=== PATIENT | male | born 1970 | race Two or more races ===

== ENCOUNTER 2016-04-18 14:26 | Emergency (ER) | payer MEDICARE, MEDICAID ==
[2016-04-18] MEDS ORDERED: NS 0.9% 1000 ML* 1,000 ML IV ONE (15:09)
[2016-04-18] MEDS ORDERED: Ondansetron INJ* 2 MG/ML VIAL IV ONE (15:11)
--- NOTE | 2016-04-18 15:37 | RAD ---
INDICATION: Seizure COMPARISON: May 08, 2015 TECHNIQUE: An AP portable view obtained at 1530 hours is submitted. FINDINGS: Bones/Soft Tissues: There are no acute bony findings. Cardiomediastinal: The cardiomediastinal silhouette is normal. Lungs: There are no infiltrates. Pleura: There are no pleural effusions. Other: None IMPRESSION: NO ACTIVE DISEASE.
[2016-04-18 15:52] LABS: Hematocrit 46 % (42-52); Hemoglobin 15.7 g/dl (14.0-18.0); Mean Corpuscular HGB Conc 34 g/dl (31-36); Mean Corpuscular Hemoglobin 30 pg (27-31); Mean Corpuscular Volume 88 fL (80-94); Mean Platelet Volume 9 um3 (7.4-10.4); Red Blood Count 5.19 10^6/ul (4.0-5.4); Red Cell Distribution Width 12 % (10.5-15)
[2016-04-18 16:01] LABS: ALT 41 U/L (7-52); AST 19 U/L (13-39); Albumin 4.2 g/dL (3.2-5.2); Alkaline Phosphatase 40 U/L (34-104); Anion Gap 5 mmol/L (2-11); BUN/Creatinine Ratio 18.1 (8-20); Blood Urea Nitrogen 19 mg/dL (6-24); CO2 Carbon Dioxide 25 mmol/L (22-32); Calcium 9.3 mg/dL (8.6-10.3); Chloride 105 mmol/L (101-111); EGFR African American 97.8 (>60); Globulin 2.6 g/dL (2-4); Glucose 97 mg/dL (70-100); Magnesium 2.1 mg/dL (1.9-2.7); Potassium 3.9 mmol/L (3.5-5.0); Sodium 135 mmol/L (133-145); Total Protein 6.8 g/dL (6.4-8.9)
[2016-04-18 16:27] LABS: Alcohol < 10 mg/dL (<10)
[2016-04-18] MEDS ORDERED: Divalproex ER TAB(*) 500 MG PO ONE (16:37)
[2016-04-18 16:47] VITALS: BP 128/75
--- NOTE | 2016-04-18 16:57 | ED ---
Shan Guan Billy, scribed for Stewart Dong MD on 04/18/16 at 1507 . Neurological HPI - HPI Summary HPI Summary: Patient is a 45 year-old male with history of seizures coming to [facility] presenting with an episode today at around 1300. His states that he complained of a headache this morning, and when they were watching their daughter's basketball game, she noticed that he had his head down. She suspected that he was about to have a seizure, so she brought him down the bleachers and out of the gym, where she let him down to the ground. He then proceeded to have one seizure lasting approximately 15 minutes. Symptoms resolved spontaneously. Patient reports nausea and fatigue at this time. Denies any tongue-biting, incontinence, HINES, CP, or SOB at this time. Denies head injury. His states that his post-ictal state seems longer than usual. He sees Dr. Duffy for neurology. He takes Zonisamide and Depakote for his seizures and he has not missed any doses recently. - History of Current Complaint Chief Complaint: EDSeizure Stated Complaint: SEIZURE Time Seen by Provider: 04/18/16 15:01 Hx Obtained From: Patient, Family/Core Analysis Operator Timing: Sudden Onset Seizure Severity: Moderate Number of Seizures: 1 - 15 minutes Pain Intensity: 3 Pain Scale Used: 0-10 Numeric Aggravating: Nothing Alleviating: Nothing Associated Signs and Symptoms: Positive: Headache - resolved, Nausea/Vomiting - nausea without vomiting. Negative: Incontinent Bladder/Bowel, Chest Pain, Shortness of Breath - Allergy/Home Medications Allergies/Adverse Reactions: Allergies Allergy/AdvReac Type Severity Reaction Status Date / Time No Known Allergies Allergy Verified 05/08/15 18:45 PMH/Surg Hx/FS Hx/Imm Hx Endocrine/Hematology History: Denies: Hx Diabetes Cardiovascular History: Denies: Hx Hypertension, Hx Pacemaker/ICD History: Denies: Hx Renal Disease Sensory History: Denies: Hx Hearing Aid Neurological History: Reports: Hx Seizures Psychiatric History: Denies: Hx Panic Disorder - Surgical History Surgery Procedure, Year, and Place: EYES- MUSCLE CORRECTION Infectious Disease History: No Infectious Disease History: Denies: Hx Clostridium Difficile, Hx Hepatitis, Hx Human Immunodeficiency Virus (HIV), Hx of Known/Suspected MRSA, Hx Shingles, Hx Tuberculosis, Hx Known/ Suspected VRE, Hx Known/Suspected VRSA, History Other Infectious Disease, Traveled Outside the [place] in Last 30 Days - Family History Known Family History: Positive: Hypertension - Social History Alcohol Use: None Alcohol Amount: 1-2 beers Substance Use Type: Reports: None Hx Tobacco Use: No Smoking Status (MU): Former Smoker Length of Time of Smoking/Using Tobacco: 3-4 years Have You Smoked in the Last Year: No Review of Systems Negative: Chest Pain Negative: Shortness Of Breath Positive: Nausea Negative: incontinence Neurological: Other - seizure Positive: Headache - resolved All Other Systems Reviewed And Are Negative: Yes Physical Exam - Summary Physical Exam Summary: VITAL SIGNS: Reviewed. GENERAL: Patient is a well developed and nourished male who is lying comfortable in the stretcher. Patient is not in any acute respiratory distress. HEAD AND FACE: No signs of trauma. No ecchymosis, hematomas or skull depressions. No sinus tenderness. EYES: PERRLA, EOMI x 2, No injected conjunctiva, no nystagmus. No photophobia. EARS: Hearing grossly intact. Ear canals and tympanic membranes are within normal limits. MOUTH: Oropharynx within normal limits. NECK: Supple, trachea is midline, no adenopathy, no JVD, no carotid bruit, no c- spine tenderness, neck with full ROM. No meningeal signs, no Kernig's or brudzinskis signs. CHEST: Symmetric, no tenderness at palpation LUNGS: Clear to auscultation bilaterally. No wheezing or crackles. CVS: Regular rate and rhythm, S1 and S2 present, no murmurs or gallops appreciated. ABDOMEN: Soft, non-tender. No signs of distention. No rebound no guarding, and no masses palpated. Bowel sounds are normal. EXTREMITIES: FROM in all major joints, no edema, no cyanosis or clubbing. NEURO: Alert and oriented x 3. No acute neurological deficits. Speech is normal and follows commands. SKIN: Dry and warm Triage Information Reviewed: Yes Vital Signs On Initial Exam: Initial Vitals Temp Pulse Resp BP Pulse Ox 99.1 F 74 18 139/77 98 04/18/16 14:41 04/18/16 14:41 04/18/16 14:41 04/18/16 14:41 04/18/16 14:41 Vital Signs Reviewed: Yes Diagnostics - Vital Signs Vital Signs Temp Pulse Resp BP Pulse Ox 04/18/16 14:41 99.1 F 74 18 139/77 98 - Laboratory Lab Results: Lab Results 04/18/16 04/18/16 04/18/16 Range/Units 15:37 15:37 15:37 WBC 8.0 (3.5-10.8) 10^3/ul RBC 5.19 (4.0-5.4) 10^6/ul Hgb 15.7 (14.0-18.0) g/dl Hct 46 (42-52) % MCV 88 (80-94) fL MCH 30 (27-31) pg MCHC 34 (31-36) g/dl RDW 12 (10.5-15) % Plt Count 113 L (150-450) 10^3/ul MPV 9 (7.4-10.4) um3 Neut % (Auto) 66.4 (38-83) % Lymph % (Auto) 26.4 (25-47) % [place] % (Auto) 5.4 (1-9) % Eos % (Auto) 1.4 (0-6) % Baso % (Auto) 0.4 (0-2) % Absolute Neuts (auto) 5.3 (1.5-7.7) 10^3/ul Absolute Lymphs (auto) 2.1 (1.0-4.8) 10^3/ul Absolute Monos (auto) 0.4 (0-0.8) 10^3/ul Absolute Eos (auto) 0.1 (0-0.6) 10^3/ul Absolute Basos (auto) 0 (0-0.2) 10^3/ul Absolute Nucleated RBC 0.01 10^3/ul Nucleated RBC % 0.1 INR (Anticoag Therapy) 0.95 (0.89-1.11) Sodium 135 (133-145) mmol/L Potassium 3.9 (3.5-5.0) mmol/L Chloride 105 (101-111) mmol/L Carbon Dioxide 25 (22-32) mmol/L Anion Gap 5 (2-11) mmol/L BUN 19 (6-24) mg/dL Creatinine 1.05 (0.67-1.17) mg/dL Est GFR ( Amer) 97.8 (>60) Est GFR (Non-Af Amer) 76.0 (>60) BUN/Creatinine Ratio 18.1 (8-20) Glucose 97 (70-100) mg/dL Lactic Acid (0.5-2.0) mmol/L Calcium 9.3 (8.6-10.3) mg/dL Magnesium 2.1 (1.9-2.7) mg/dL Total Bilirubin 0.50 (0.2-1.0) mg/dL AST 19 (13-39) U/L ALT 41 (7-52) U/L Alkaline Phosphatase 40 (34-104) U/L Total Protein 6.8 (6.4-8.9) g/dL Albumin 4.2 (3.2-5.2) g/dL Globulin 2.6 (2-4) g/dL Albumin/Globulin Ratio 1.6 (1-3) Valproic Acid 14.0 L (50-100) mcg/mL Serum Alcohol < 10 (<10) mg/dL 04/18/16 Range/Units 15:37 WBC (3.5-10.8) 10^3/ul RBC (4.0-5.4) 10^6/ul Hgb (14.0-18.0) g/dl Hct (42-52) % MCV (80-94) fL MCH (27-31) pg MCHC (31-36) g/dl RDW (10.5-15) % Plt Count (150-450) 10^3/ul MPV (7.4-10.4) um3 Neut % (Auto) (38-83) % Lymph % (Auto) (25-47) % [place] % (Auto) (1-9) % Eos % (Auto) (0-6) % Baso % (Auto) (0-2) % Absolute Neuts (auto) (1.5-7.7) 10^3/ul Absolute Lymphs (auto) (1.0-4.8) 10^3/ul Absolute Monos (auto) (0-0.8) 10^3/ul Absolute Eos (auto) (0-0.6) 10^3/ul Absolute Basos (auto) (0-0.2) 10^3/ul Absolute Nucleated RBC 10^3/ul Nucleated RBC % INR (Anticoag Therapy) (0.89-1.11) Sodium (133-145) mmol/L Potassium (3.5-5.0) mmol/L Chloride (101-111) mmol/L Carbon Dioxide (22-32) mmol/L Anion Gap (2-11) mmol/L BUN (6-24) mg/dL Creatinine (0.67-1.17) mg/dL Est GFR ( Amer) (>60) Est GFR (Non-Af Amer) (>60) BUN/Creatinine Ratio (8-20) Glucose (70-100) mg/dL Lactic Acid 1.5 (0.5-2.0) mmol/L Calcium (8.6-10.3) mg/dL Magnesium (1.9-2.7) mg/dL Total Bilirubin (0.2-1.0) mg/dL AST (13-39) U/L ALT (7-52) U/L Alkaline Phosphatase (34-104) U/L Total Protein (6.4-8.9) g/dL Albumin (3.2-5.2) g/dL Globulin (2-4) g/dL Albumin/Globulin Ratio (1-3) Valproic Acid (50-100) mcg/mL Serum Alcohol (<10) mg/dL Result Diagrams: 04/18/16 15:37 04/18/16 15:37 Lab Statement: Any lab studies that have been ordered have been reviewed, and results considered in the medical decision making process. - Radiology CXR Xray Interpretation: No Acute Changes Radiology Interpretation Completed By: Radiologist - EKG 1603 EKG Interpretation: NSR 65 bpm, no ST elevation Re-Evaluation - Re-Evaluation First Eval Re-Evaluation Time: 16:37 Change: Improved Course/Dx - Course Assessment/Plan: Patient is a 45 year-old male with history of seizures coming to [facility] presenting with an episode today at around 1300. His states that he complained of a headache this morning, and when they were watching their daughter's basketball game, she noticed that he had his head down. She suspected that he was about to have a seizure, so she brought him down the bleachers and out of the gym, where she let him down to the ground. He then proceeded to have one seizure lasting approximately 15 minutes. Symptoms resolved spontaneously. Patient reports nausea and fatigue at this time. Denies any tongue-biting, incontinence, HINES, CP, or SOB at this time. Denies head injury. His states that his post-ictal state seems longer than usual. He sees Dr. Duffy for neurology. He takes Zonisamide and Depakote for his seizures and he has not missed any doses recently. Bloodwork WNL. Valproic acid level is 14. This level is very low, so it seems as if he missed a few doses of his medication, therefore he had a seizure episode today. The CXR is normal. In the Ed course, he was given IV fluids and a loading dose of valproic acid. I discussed the case with Dr. Farley (neurology) and she recommends for the patient to be discharged home to follow up with neurologist and to be compliant with his medications. He is hemodynamically stable, A&Ox3. - Differential Dx Differential Diagnoses Neuro: Positive: Medication Reaction, Postical, Seizure Disorder - Diagnoses Provider Diagnoses: Seizure - Physician Notifications Discussed Care of Patient With: Dr. Farley (neurology) @ 1634: recommends an additional 500mg of Depakote, and discharge. Discharge - Discharge Plan Condition: Stable Disposition: HOME Patient Education Materials: Recurrent Seizures in Adults (ED) Referrals: Yaron Latham MD [Primary Care Provider] - Radha Farley MD [Medical Doctor] - The documentation as recorded by the Shan bearden Billy accurately reflects the service I personally performed and the decisions made by me, Stewart Dong MD.
== END 2016-04-18 16:51 | disposition home or self-care (01) ==
LOC: ED 14:26
DX: G40.909 Epilepsy, unspecified, not intractable, without status epilepticus (principal); Z87.891 Personal history of nicotine dependence
CPT/HCPCS: 36415; 71010; 80053; 80164; 80320; 83605; 83735; 85025; 85610; 93005; 99283; A9270-GY; G0480; J2405

== ENCOUNTER 2016-05-15 14:00 | Inpatient (IN) | payer MEDICARE, MEDICAID ==
[2016-05-15] MEDS ORDERED: diPHENhydraMINE PO* 25 MG PO PRN (19:45)
[2016-05-15] MEDS ORDERED: LORazepam INJ* 2 MG/ML 1 ML VIAL IV PRN (19:45)
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
[2016-05-15] MEDS: Divalproex DR TAB(*) 125 MG PO SCH (21:29)
[2016-05-16] MEDS: traZODone TAB* 50 MG TAB PO PRN ×2 (00:52→23:57)
[2016-05-16] MEDS: ICOSAPENT ETHYL PO SCH ×2 (08:45→22:30)
[2016-05-16] MEDS: Divalproex DR TAB(*) 125 MG PO SCH (08:45)
--- NOTE | 2016-05-16 12:06 | PN ---
Epilepsy Service Progress Note - Subjective DOS: 05/16/16 Pt was a little nauseated last night. At some crackers, had kvng rafia. Thinks it's because he took his meds with less food in his stomach than normal. Had some trouble falling asleep but otherwise slept ok. No events since last night at 6pm. - Medications Active Medications: Diphenhydramine HCl (Benadryl Po*) 25 mg PO Q6H PRN PRN Reason: ITCHING Divalproex Sodium (Depakote Dr Tab(*)) 375 mg PO BID [facility] Last Admin: 05/16/16 08:45 Dose: 375 mg Ibuprofen (Motrin Tab*) 400 mg PO Q6H PRN PRN Reason: PAIN Lorazepam (Ativan Inj*) 1 mg IV Q8H PRN PRN Reason: Generalized Tonic Clonic Seizu Pto Icosapent Ethyl ([Vascepa]) 2 tab PO BID [facility] Last Admin: 05/16/16 08:45 Dose: 2 tab Trazodone HCl (Desyrel Tab*) 150 mg PO BEDTIME PRN PRN Reason: ANXIETY/INSOMNIA Last Admin: 05/16/16 00:52 Dose: 150 mg EMU Diagnostics - Diagnostic Most Recent Vital Signs: Vital Signs: Temp Pulse Resp BP Pulse Ox 97.4 F 85 20 118/71 96 05/16/16 08:52 05/16/16 08:52 05/16/16 09:51 05/16/16 08:52 05/16/16 01:18 Lab Results: Laboratory Tests 05/15/16 05/16/16 18:05 01:34 POC Glucose (mg/dL) 93 84 Interim video-EEG long-term monitoring report: #01 05/15: Normal background, PDR 9. Normal sleep background. Patient had an event of feeling "out of body", then hot, associated with delayed responses and inability to remember a recall phrase at 6pm. This was not associated with any change in the background EEG. No epileptiform discharges. No seizures. EMU Exam - Exam Physical/Neurological Exam: Physical Exam: General: Well appearing in no acute distress. Neurological Exam: Mental Status: Awake and alert. Oriented to person, place, and time. Fluent. Comprehension intact. Affect appropriate. Cranial Nerves: Visual sanchez full to confrontation. Pupils were equal, round, and reactive constricting from 3mm to 2mm. Versions were full and without nystagmus. Facial musculature and sensation were symmetric. Hearing grossly intact to finger rub. Palate was upgoing bilaterally. Tongue was midline. Shoulder shrug was symmetric. Motor: Bulk, tone, and strength were normal throughout. Pronator drift was absent. There were no abnormal movements. Sensory: Sensation to light touch intact. Coordination: Finger to nose intact. Reflexes: 2+ throughout the upper and lower extremities with downgoing toes bilaterally. Gait: deferred EMU Progress Note Assessment/P - Assessment/Plan Assessment: 45 year old man with a history of seizures since age 13 which have changed in character somewhat over the years. He has episodes of zoning out followed by abnormal body movements which were previously characterized as "like an inch worm" by his fiance, but over the last 2 years he's described as banging his against the floor once he falls and kicking his legs. He also has new episodes of an out of body feeling followed by feeling hot. One event of out of body and feeling hot captured on 05/15. He had delayed responses to questions and was unable to remember a recall phrase. This was not associated with changes in the background EEG and was non-epileptic in nature. BG was checked during the spell and was normal. No zoning out episodes captured yet. Plan: * Continue [facility] video EEG monitoring to capture typical episodes * Seizure precautions * Decrease Depakote to 250mg BID x2 doses then will likely decrease to 250mg qhs tomorrow then stop * zonisamide stopped on 05/15 * lorazepam 1mg IV prn GTC * will consider photic induction Wednesday (05/18) if no events
--- NOTE | 2016-05-16 12:12 | EEG ---
LONGTERM VIDEO/EEG MONITORING - Monitoring Monitoring Start Date: 05/15/16 Current Monitoring Session: 05/15/16 to 05/22/16 EEG Clinical Indication: 45 year old man with a reported history of seizures since age 13. Previously, he would have a warning of an odd, metallic taste in his mouth, then would have generalized shaking. Prior to shaking beginning, he would be unable to communicate but could sometimes still hear what was going on. These events have changed over the years. He no longer has the metallic taste. His fiance describes him zoning out, then he may fall to the floor and bang his head against the floor and kick his legs. This has been happening over the past 2 years. Prior to that, she described that he appeared like an inch worm, moving across the floor after falling. These episodes can last 15 to 20 minutes. He also has newer episodes in the past 2 weeks of an "out of body" experience following by feeling hot. These last a few minutes. Introduction: INTRODUCTION: The EEG was monitored from 21 scalp electrodes. Nineteen electrodes consisted of the standard parasagittal, temporal and midline leads of the International 10 -20 system. In addition, special electrodes FT9 and FT10 were placed. EEG data were recorded on an [employer] system with simultaneous MPEG-4 digital video recording of patient behavior. EEG recording was in a monopolar montage with all electrodes referenced to FCz. Significant behavioral events were signaled by an event button, or putative electrical seizure events were detected by a computer program. All EEG data were reviewed in their entirety on a monitor with reconstruction of montages and adjustments of sensitivity and filtering. Simultaneous patient behavior was viewed on an adjacent monitor and correlated with the EEG. - Medications Active Medications: Diphenhydramine HCl (Benadryl Po*) 25 mg PO Q6H PRN PRN Reason: ITCHING Divalproex Sodium (Depakote Dr Tab(*)) 375 mg PO BID [facility] Last Admin: 05/16/16 08:45 Dose: 375 mg Ibuprofen (Motrin Tab*) 400 mg PO Q6H PRN PRN Reason: PAIN Lorazepam (Ativan Inj*) 1 mg IV Q8H PRN PRN Reason: Generalized Tonic Clonic Seizu Pto Icosapent Ethyl ([Vascepa]) 2 tab PO BID [facility] Last Admin: 05/16/16 08:45 Dose: 2 tab Trazodone HCl (Desyrel Tab*) 150 mg PO BEDTIME PRN PRN Reason: ANXIETY/INSOMNIA Last Admin: 05/16/16 00:52 Dose: 150 mg - Description Background: The waking background showed appropriate organization with clearly defined anterior-posterior voltage and frequency gradients. There was a defined posterior dominant rhythm of 9 Hertz, which was symmetrical and showed normal reactivity. Anteriorly, there was the expected pattern of lower voltage and more irregular theta and beta rhythms. The sleep background was appropriately organized with well-developed spindles and vertex waves indicative of stage 2 sleep. These sleep transients showed appropriate morphology and were bilaterally synchronous and symmetrical. Development of diffuse delta range frequencies with dropout of stage 2 architecture accompanied transition to slow wave sleep, and a lower voltage mixed frequency pattern associated with eye movements was consistent with REM sleep. Intericatal Epileptiform Activity: #01 05/15: Zonisamide discontinued. Depakote decreased to 375mg BID. No discharges. #02 05/16: Depakote 375/250mg. Background is the same as above. No discharges. #03 05/17: Depakote 250mg BID then d/c'd. Background is same as above. No discharges. #04 05/18: Background unchanged. No discharges. Photic stimulation showed a normal driving response. #05 05/19: Background unchanged. No discharges. Sleep deprived, patient slept 1.5 hours #06 05/20: Background unchanged. No discharges. Photic stimulation performed and a normal driving response was observed. #07 05/21: Zonisamide 200mg BID started in the evening of 05/21. Background unchanged. No discharges. Ictal Activity: #01 05/15: At 17:55 the patient pushed the event button and indicated he was having an out of body feeling. He had delayed responses to questions and commands intermittently and was unable to remember a recall phrase (purple cow) given to him. He complained of his face feeling like it was burning. He was able to identify his fiance in the room but had a hard time coming up with her name. This event lasted about 3 minutes. There was no EEG change with this. No seizures. #02 05/16: No ictal events. No patient events. #03 05/17: No ictal events. No patient events. #04 05/18: Photic induction was performed at the bedside and there were no EEG changes. No typical event was elicited. He did report that his right hand felt numb and that he felt very warm at the end of the procedure. He became tearful after the procedure was over. At 17:10, the patient pressed the event button. He had just woken from a nap and was initially slow to respond to questions from the nurse. He spoke quietly and so could not be heard well on video but reported some chest pain, feeling hot and shortness of breath. He was able to follow commands. He was tachycardic to the low 100s. BP was within normal range. EKG was obtained and was normal. There were no associated EEG changes. #05 05/19: No ictal events. Event button pressed at 05:27 on 05/20 due to feeling "jittery" in the setting of sleep deprivation. No EEG changes. #06 05/20: Photic induction was performed. The patient reported feeling jittery and dizzy but a typical event was not elicited. There were no abnormal EEG patterns noted during photic. No ictal events, no patient events. #07 05/21: No ictal events. No patient events. - Impression Impression: This is a normal long-term monitoring session. There was one event of an out of body sensation captured on the day of admission, which was not associated with any EEG changes. This was consistent with a psychogenic non-epileptic attack ( PNEA). In addition, other non-specific symptoms were noted by the patient, which were also not associated with any EEG changes and are further described above. Unfortunately, none of the patient's typical events of unresponsiveness and abnormal body movements were captured during this monitoring session. While the current monitoring session does not suggest a diagnosis of epilepsy, the results overall are inconclusive since a habitual episode was not captured.
[2016-05-16] MEDS: Divalproex DR TAB(*) 250 MG PO SCH (22:30)
[2016-05-17] MEDS: ICOSAPENT ETHYL PO SCH ×2 (09:35→21:09)
[2016-05-17] MEDS: Divalproex DR TAB(*) 250 MG PO SCH ×2 (09:38→21:09)
[2016-05-17] MEDS: Ibuprofen TAB* 400 MG PO PRN (10:16)
--- NOTE | 2016-05-17 12:42 | PN ---
Epilepsy Service Progress Note - Subjective Mr Malik has no complaints. No episodes overnight. Says he is not stressed here like he typically is at home because he's usually taking care of 2 kids, cleaning, cooking, etc. - Medications Active Medications: Diphenhydramine HCl (Benadryl Po*) 25 mg PO Q6H PRN PRN Reason: ITCHING Divalproex Sodium (Depakote Dr Tab(*)) 250 mg PO BID [facility] Last Admin: 05/17/16 09:38 Dose: 250 mg Ibuprofen (Motrin Tab*) 400 mg PO Q6H PRN PRN Reason: PAIN Last Admin: 05/17/16 10:16 Dose: 400 mg Lorazepam (Ativan Inj*) 1 mg IV Q8H PRN PRN Reason: Generalized Tonic Clonic Seizu Pto Icosapent Ethyl ([Vascepa]) 2 tab PO BID [facility] Last Admin: 05/17/16 09:35 Dose: 2 tab Trazodone HCl (Desyrel Tab*) 150 mg PO BEDTIME PRN PRN Reason: ANXIETY/INSOMNIA Last Admin: 05/16/16 23:57 Dose: 150 mg EMU Diagnostics - Diagnostic Most Recent Vital Signs: Vital Signs: Temp Pulse Resp BP Pulse Ox 97.4 F 76 18 126/66 96 05/17/16 08:06 05/17/16 08:06 05/17/16 10:18 05/17/16 08:06 05/17/16 08:00 Lab Results: Laboratory Tests 05/15/16 05/16/16 18:05 01:34 POC Glucose (mg/dL) 93 84 Interim video-EEG long-term monitoring report: #01 05/15: Normal background, PDR 9. Normal sleep background. Patient had an event of feeling "out of body", then hot, associated with delayed responses and inability to remember a recall phrase at 6pm. This was not associated with any change in the background EEG. No epileptiform discharges. No seizures. #02 05/16: No change in background. No discharges, no seizures. No events EMU Exam - Exam Physical/Neurological Exam: Physical Exam: General: Well appearing in no acute distress. Neurological Exam: Mental Status: Awake and alert. Oriented to person, place, and time. Fluent. Comprehension intact. Affect appropriate. Cranial Nerves: Visual sanchez full to confrontation. Pupils were equal, round, and reactive constricting from 3mm to 2mm. Versions were full and without nystagmus. Facial musculature and sensation were symmetric. Hearing grossly intact to finger rub. Palate was upgoing bilaterally. Tongue was midline. Shoulder shrug was symmetric. Motor: Bulk, tone, and strength were normal throughout. Pronator drift was absent. There were no abnormal movements. Sensory: Sensation to light touch intact. Coordination: Finger to nose intact. Reflexes: 2+ throughout the upper and lower extremities with downgoing toes bilaterally. Gait: deferred EMU Progress Note Assessment/P - Assessment/Plan Assessment: 45 year old man with a history of seizures since age 13 which have changed in character somewhat over the years. He has episodes of zoning out followed by abnormal body movements which were previously characterized as "like an inch worm" by his fiance, but over the last 2 years he's described as banging his against the floor once he falls and kicking his legs. He also has new episodes of an out of body feeling followed by feeling hot. One event of out of body and feeling hot captured on 05/15. He had delayed responses to questions and was unable to remember a recall phrase. This was not associated with changes in the background EEG and was non-epileptic in nature. BG was checked during the spell and was normal. No zoning out episodes captured yet. Plan: * Continue correction video EEG monitoring to capture typical episodes * Seizure precautions * D/c Depakote after tonight's dose of 250mg. * zonisamide stopped on 05/15 * lorazepam 1mg IV prn GTC * will consider photic induction Wednesday (05/18) if no events
[2016-05-18] MEDS: traZODone TAB* 50 MG TAB PO PRN (00:42)
[2016-05-18] MEDS: ICOSAPENT ETHYL PO SCH ×2 (09:35→21:03)
--- NOTE | 2016-05-18 12:11 | PN ---
Epilepsy Service Progress Note - Subjective DOS 05/18/16 Patient feels a little tired today. Ok with doing photic induction. No events. - Medications Active Medications: Diphenhydramine HCl (Benadryl Po*) 25 mg PO Q6H PRN PRN Reason: ITCHING Ibuprofen (Motrin Tab*) 400 mg PO Q6H PRN PRN Reason: PAIN Last Admin: 05/17/16 10:16 Dose: 400 mg Lorazepam (Ativan Inj*) 1 mg IV Q8H PRN PRN Reason: Generalized Tonic Clonic Seizu Pto Icosapent Ethyl ([Vascepa]) 2 tab PO BID [facility] Last Admin: 05/18/16 09:35 Dose: 2 tab Trazodone HCl (Desyrel Tab*) 150 mg PO BEDTIME PRN PRN Reason: ANXIETY/INSOMNIA Last Admin: 05/18/16 00:42 Dose: 150 mg EMU Diagnostics - Diagnostic Most Recent Vital Signs: Vital Signs: Temp Pulse Resp BP Pulse Ox 97.8 F 75 20 118/69 96 05/18/16 09:48 05/18/16 09:48 05/18/16 09:48 05/18/16 09:48 05/18/16 09:48 Lab Results: Laboratory Tests 05/15/16 05/16/16 18:05 01:34 POC Glucose (mg/dL) 93 84 Interim video-EEG long-term monitoring report: #01 05/15: Normal background, PDR 9. Normal sleep background. Patient had an event of feeling "out of body", then hot, associated with delayed responses and inability to remember a recall phrase at 6pm. This was not associated with any change in the background EEG. No epileptiform discharges. No seizures. #02 05/16: No change in background. No discharges, no seizures. No events #03 05/17: No change in background. No discharges, no seizures. No events. EMU Exam - Exam Physical/Neurological Exam: Physical Exam: General: Well appearing in no acute distress. Neurological Exam: Mental Status: Awake and alert. Oriented to person, place, and time. Fluent. Comprehension intact. Affect appropriate. Cranial Nerves: Visual sanchez full to confrontation. Pupils were equal, round, and reactive constricting from 3mm to 2mm. Versions were full and without nystagmus. Facial musculature and sensation were symmetric. Hearing grossly intact to finger rub. Palate was upgoing bilaterally. Tongue was midline. Shoulder shrug was symmetric. Motor: Bulk, tone, and strength were normal throughout. Pronator drift was absent. There were no abnormal movements. Sensory: Sensation to light touch intact. Coordination: Finger to nose intact. Reflexes: 2+ throughout the upper and lower extremities with downgoing toes bilaterally. Gait: deferred EMU Progress Note Assessment/P - Assessment/Plan Assessment: 45 year old man with a history of seizures since age 13 which have changed in character somewhat over the years. He has episodes of zoning out followed by abnormal body movements which were previously characterized as "like an inch worm" by his fiance, but over the last 2 years he's described as banging his against the floor once he falls and kicking his legs. He also has new episodes of an out of body feeling followed by feeling hot. One event of out of body and feeling hot captured on 05/15. He had delayed responses to questions and was unable to remember a recall phrase. This was not associated with changes in the background EEG and was non-epileptic in nature. BG was checked during the spell and was normal. No zoning out episodes captured yet. Photic induction was performed this morning and was unremarkable. No event provoked. Patient just reported feeling some numbness in his right hand but this is not typical of his events. Plan: * Continue senior living video EEG monitoring to capture typical episodes * Seizure precautions * Depakote discontinued 05/17. * zonisamide stopped on 05/15 * lorazepam 1mg IV prn GTC * temperature increased in room to 85F
[2016-05-18] MEDS ORDERED: Bismuth Subsalicylate* 524 MG/30 ML BTL PO PRN (17:22)
[2016-05-18] MEDS: Bismuth Subsalicylate* 524 MG/30 ML BTL PO PRN (20:58)
[2016-05-19] MEDS: traZODone TAB* 50 MG TAB PO PRN (00:27)
[2016-05-19] MEDS: ICOSAPENT ETHYL PO SCH ×2 (10:00→21:22)
--- NOTE | 2016-05-19 12:50 | PN ---
Epilepsy Service Progress Note - Subjective No events overnight. Pt feeling better today after experiencing chest pain and feeling unwell yesterday around 5pm. Says he now feels stupid because it ended up being diarrhea, which he attributes to snacking too much. Room continues to be heated. - Medications Active Medications: Bismuth Subsalicylate (Peptic Relief*) 524 mg PO QID PRN PRN Reason: HEARTBURN Last Admin: 05/18/16 20:58 Dose: 524 mg Diphenhydramine HCl (Benadryl Po*) 25 mg PO Q6H PRN PRN Reason: ITCHING Ibuprofen (Motrin Tab*) 400 mg PO Q6H PRN PRN Reason: PAIN Last Admin: 05/17/16 10:16 Dose: 400 mg Lorazepam (Ativan Inj*) 1 mg IV Q8H PRN PRN Reason: Generalized Tonic Clonic Seizu Pto Icosapent Ethyl ([Vascepa]) 2 tab PO BID [facility] Last Admin: 05/19/16 10:00 Dose: 2 tab Trazodone HCl (Desyrel Tab*) 150 mg PO BEDTIME PRN PRN Reason: ANXIETY/INSOMNIA Last Admin: 05/19/16 00:27 Dose: 150 mg EMU Diagnostics - Diagnostic Most Recent Vital Signs: Vital Signs: Temp Pulse Resp BP Pulse Ox 98.8 F 77 17 113/66 98 05/19/16 09:30 05/19/16 09:30 05/19/16 09:30 05/19/16 09:30 05/19/16 09:30 Lab Results: Laboratory Tests 05/15/16 05/16/16 18:05 01:34 POC Glucose (mg/dL) 93 84 Interim video-EEG long-term monitoring report: #01 05/15: Normal background, PDR 9. Normal sleep background. Patient had an event of feeling "out of body", then hot, associated with delayed responses and inability to remember a recall phrase at 6pm. This was not associated with any change in the background EEG. No epileptiform discharges. No seizures. #02 05/16: No change in background. No discharges, no seizures. No events #03 05/17: No change in background. No discharges, no seizures. No events. #04 05/18: Patient had event of chest pain, tachycardia, shortness of breath and was somewhat slow to respond. No changes in EEG associated with this. No change in background, no discharges, no seizures. EMU Exam - Exam Physical/Neurological Exam: Physical Exam: General: Well appearing in no acute distress. Neurological Exam: Mental Status: Awake and alert. Oriented to person, place, and time. Fluent. Comprehension intact. Affect appropriate. Cranial Nerves: Visual sanchez full to confrontation. Pupils were equal, round, and reactive constricting from 3mm to 2mm. Versions were full and without nystagmus. Facial musculature and sensation were symmetric. Hearing grossly intact to finger rub. Palate was upgoing bilaterally. Tongue was midline. Shoulder shrug was symmetric. Motor: Bulk, tone, and strength were normal throughout. Pronator drift was absent. There were no abnormal movements. Sensory: Sensation to light touch intact. Coordination: Finger to nose intact. Reflexes: 2+ throughout the upper and lower extremities with downgoing toes bilaterally. Gait: deferred EMU Progress Note Assessment/P - Assessment/Plan Assessment: 45 year old man with a history of seizures since age 13 which have changed in character somewhat over the years. He has episodes of zoning out followed by abnormal body movements which were previously characterized as "like an inch worm" by his fiance, but over the last 2 years he's described as banging his against the floor once he falls and kicking his legs. He also has new episodes of an out of body feeling followed by feeling hot. One event of out of body and feeling hot captured on 05/15. He had delayed responses to questions and was unable to remember a recall phrase. This was not associated with changes in the background EEG and was non-epileptic in nature. BG was checked during the spell and was normal. Episode of chest pain, SOB and tachycardia on 05/18 not associated with EEG changes. Photic induction on 05/18 negative. No zoning out episodes captured yet. Plan: * Continue skilled nursing video EEG monitoring to capture typical episodes * Seizure precautions * Depakote discontinued 05/17. * zonisamide stopped on 05/15 * lorazepam 1mg IV prn GTC * temperature decreased today as patient will be sleep deprived tonight to 3 hours. No naps today.
[2016-05-20] MEDS: ICOSAPENT ETHYL PO SCH ×2 (09:18→20:04)
--- NOTE | 2016-05-20 13:11 | PN ---
Epilepsy Service Progress Note - Subjective DOS 05/20/16 Patient was sleep deprived last night and only slept about 1.5 hours. Woke up several times feeling jittery and pushed the event button once for this. Was agreeable to photic stimulation this morning - Medications Active Medications: Bismuth Subsalicylate (Peptic Relief*) 524 mg PO QID PRN PRN Reason: HEARTBURN Last Admin: 05/18/16 20:58 Dose: 524 mg Diphenhydramine HCl (Benadryl Po*) 25 mg PO Q6H PRN PRN Reason: ITCHING Ibuprofen (Motrin Tab*) 400 mg PO Q6H PRN PRN Reason: PAIN Last Admin: 05/17/16 10:16 Dose: 400 mg Lorazepam (Ativan Inj*) 1 mg IV Q8H PRN PRN Reason: Generalized Tonic Clonic Seizu Pto Icosapent Ethyl ([Vascepa]) 2 tab PO BID [facility] Last Admin: 05/20/16 09:18 Dose: 2 tab Trazodone HCl (Desyrel Tab*) 150 mg PO BEDTIME PRN PRN Reason: ANXIETY/INSOMNIA Last Admin: 05/19/16 00:27 Dose: 150 mg EMU Diagnostics - Diagnostic Most Recent Vital Signs: Vital Signs: Temp Pulse Resp BP Pulse Ox 97.7 F 77 20 132/83 99 05/20/16 07:41 05/20/16 07:41 05/20/16 07:41 05/20/16 07:41 05/20/16 07:41 Lab Results: Laboratory Tests 05/15/16 05/16/16 18:05 01:34 POC Glucose (mg/dL) 93 84 Interim video-EEG long-term monitoring report: #01 05/15: Normal background, PDR 9. Normal sleep background. Patient had an event of feeling "out of body", then hot, associated with delayed responses and inability to remember a recall phrase at 6pm. This was not associated with any change in the background EEG. No epileptiform discharges. No seizures. #02 05/16: No change in background. No discharges, no seizures. No events #03 05/17: No change in background. No discharges, no seizures. No events. #04 05/18: Patient had event of chest pain, tachycardia, shortness of breath and was somewhat slow to respond. No changes in EEG associated with this. No change in background, no discharges, no seizures. #05 05/19: Pressed event button for feeling jittery while trying to fall asleep. No EEG changes. Background otherwise unchanged. EMU Exam - Exam Physical/Neurological Exam: Physical Exam: General: Well appearing in no acute distress. Neurological Exam: Mental Status: Awake and alert. Oriented to person, place, and time. Fluent. Comprehension intact. Affect appropriate. Cranial Nerves: Visual sanchez full to confrontation. Pupils were equal, round, and reactive constricting from 3mm to 2mm. Versions were full and without nystagmus. Facial musculature and sensation were symmetric. Hearing grossly intact to finger rub. Palate was upgoing bilaterally. Tongue was midline. Shoulder shrug was symmetric. Motor: Bulk, tone, and strength were normal throughout. Pronator drift was absent. There were no abnormal movements. Sensory: Sensation to light touch intact. Coordination: Finger to nose intact. Reflexes: 2+ throughout the upper and lower extremities with downgoing toes bilaterally. Gait: deferred EMU Progress Note Assessment/P - Assessment/Plan Assessment: 45 year old man with a history of seizures since age 13 which have changed in character somewhat over the years. He has episodes of zoning out followed by abnormal body movements which were previously characterized as "like an inch worm" by his fiance, but over the last 2 years he's described as banging his against the floor once he falls and kicking his legs. He also has new episodes of an out of body feeling followed by feeling hot. One event of out of body and feeling hot captured on 05/15. He had delayed responses to questions and was unable to remember a recall phrase. This was not associated with changes in the background EEG and was non-epileptic in nature. BG was checked during the spell and was normal. Episode of chest pain, SOB and tachycardia on 05/18 not associated with EEG changes. Photic induction on 05/18 negative. Episode of feeling jittery on 05/20 during sleep deprivation not associated with EEG changes. No zoning out episodes captured yet. Plan: * Continue termination clerk video EEG monitoring to capture typical episodes * Seizure precautions * Depakote discontinued 05/17. * zonisamide stopped on 05/15 * lorazepam 1mg IV prn GTC * No naps today. * Photic induction performed, no event elicited.
[2016-05-20] MEDS: Bismuth Subsalicylate* 524 MG/30 ML BTL PO PRN (20:28)
[2016-05-21] MEDS: ICOSAPENT ETHYL PO SCH ×2 (08:39→20:34)
[2016-05-21] MEDS: Ibuprofen TAB* 400 MG PO PRN (08:40)
--- NOTE | 2016-05-21 12:44 | PN ---
Epilepsy Service Progress Note - Subjective DOS 05/21/16 No overnight events. Patient anxious to go home tomorrow. Discussed results of monitoring session thus far. - Medications Active Medications: Bismuth Subsalicylate (Peptic Relief*) 524 mg PO QID PRN PRN Reason: HEARTBURN Last Admin: 05/20/16 20:28 Dose: 524 mg Diphenhydramine HCl (Benadryl Po*) 25 mg PO Q6H PRN PRN Reason: ITCHING Ibuprofen (Motrin Tab*) 400 mg PO Q6H PRN PRN Reason: PAIN Last Admin: 05/21/16 08:40 Dose: 400 mg Lorazepam (Ativan Inj*) 1 mg IV Q8H PRN PRN Reason: Generalized Tonic Clonic Seizu Pto Icosapent Ethyl ([Vascepa]) 2 tab PO BID TALA Last Admin: 05/21/16 08:39 Dose: 2 tab Trazodone HCl (Desyrel Tab*) 150 mg PO BEDTIME PRN PRN Reason: ANXIETY/INSOMNIA Last Admin: 05/19/16 00:27 Dose: 150 mg Zonisamide (Zonegran(Nf)) 200 mg PO BID [facility] EMU Diagnostics - Diagnostic Most Recent Vital Signs: Vital Signs: Temp Pulse Resp BP Pulse Ox 98.4 F 87 20 129/70 97 05/20/16 20:07 05/20/16 20:07 05/21/16 08:44 05/20/16 20:07 05/20/16 20:07 Lab Results: Laboratory Tests 05/15/16 05/16/16 18:05 01:34 POC Glucose (mg/dL) 93 84 Interim video-EEG long-term monitoring report: #01 05/15: Normal background, PDR 9. Normal sleep background. Patient had an event of feeling "out of body", then hot, associated with delayed responses and inability to remember a recall phrase at 6pm. This was not associated with any change in the background EEG. No epileptiform discharges. No seizures. #02 05/16: No change in background. No discharges, no seizures. No events #03 05/17: No change in background. No discharges, no seizures. No events. #04 05/18: Patient had event of chest pain, tachycardia, shortness of breath and was somewhat slow to respond. No changes in EEG associated with this. No change in background, no discharges, no seizures. #05 05/19: Pressed event button for feeling jittery while trying to fall asleep. No EEG changes. Background otherwise unchanged. #06 05/20: Photic induction performed, no typical event elicited though pt reported feeling jittery. No change in background, no discharges, no seizures. EMU Exam - Exam Physical/Neurological Exam: Physical Exam: General: Well appearing in no acute distress. Neurological Exam: Mental Status: Awake and alert. Oriented to person, place, and time. Fluent. Comprehension intact. Affect appropriate. Cranial Nerves: Visual sanchez full to confrontation. Pupils were equal, round, and reactive constricting from 3mm to 2mm. Versions were full and without nystagmus. Facial musculature and sensation were symmetric. Hearing grossly intact to finger rub. Palate was upgoing bilaterally. Tongue was midline. Shoulder shrug was symmetric. Motor: Bulk, tone, and strength were normal throughout. Pronator drift was absent. There were no abnormal movements. Sensory: Sensation to light touch intact. Coordination: Finger to nose intact. Reflexes: 2+ throughout the upper and lower extremities with downgoing toes bilaterally. Gait: deferred EMU Progress Note Assessment/P - Assessment/Plan Assessment: 45 year old man with a history of seizures since age 13 which have changed in character somewhat over the years. He has episodes of zoning out followed by abnormal body movements which were previously characterized as "like an inch worm" by his fiance, but over the last 2 years he's described as banging his against the floor once he falls and kicking his legs. He also has new episodes of an out of body feeling followed by feeling hot. One event of out of body and feeling hot captured on 05/15. He had delayed responses to questions and was unable to remember a recall phrase. This was not associated with changes in the background EEG and was non-epileptic in nature. BG was checked during the spell and was normal. Episode of chest pain, SOB and tachycardia on 05/18 not associated with EEG changes. Photic induction on 05/18 and 05/20 negative. Episode of feeling jittery on 05/20 during sleep deprivation not associated with EEG changes. No zoning out episodes captured yet. Discussed with patient that there remains uncertainty around his diagnosis since a typical event was not captured. however, EEG has been normal throughout and this combined with his history of events and risk factors makes psychogenic events quite likely. Nevertheless, can't be certain these are not epileptic since they were not witnessed. He says Depakote caused him to have mood swings and I suggested he go back on zonisamide alone. he was agreeable. Explained that the episode of out of body sensation followed by feeling hot was non- epileptic. Will give him PNEA brochure for further reading and suggested he enter counseling. 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 * zonisamide stopped on 05/15, will be restarted tonight at 200mg BID * lorazepam 1mg IV prn GTC * Discharge planned for tomorrow between and
[2016-05-21] MEDS: Bismuth Subsalicylate* 524 MG/30 ML BTL PO PRN (20:34)
[2016-05-21] MEDS: ZONISAMIDE 50 MG PO SCH (20:55)
[2016-05-21] MEDS: traZODone TAB* 50 MG TAB PO PRN (23:49)
[2016-05-22] MEDS: Ibuprofen TAB* 400 MG PO PRN (07:24)
[2016-05-22 07:25] VITALS: BP 108/70
--- NOTE | 2016-05-22 09:19 | DS ---
EMU Discharge - Discharge Summary Discharge Summary: Admitted: 05/15/16 - 05/22/16 Attending: Radha Farley Admitting Diagnosis: epilepsy, unspecified Discharge Diagnosis: same Admission History (From Admission H&P): See H&P but briefly, this is a 45 year old man with a history of seizures since age 13 which have changed in character somewhat over the years. He has episodes of zoning out followed by abnormal body movements which were previously characterized as "like an inch worm" by his fiance, but over the last 2 years he 's described as banging his head against the floor once he falls and kicking his legs. He also has new episodes of an out of body feeling followed by feeling hot. Admission Examination: See H&P Admission AED Medications: zonisamide 200mg BID Depakote Hospital Course: The patient was admitted to the epilepsy service for long-term video EEG monitoring. Zonisamide was stopped on the evening of admission. Depakote was weaned and discontinued on 05/17. The patient had 1 event consisting of out of body and feeling hot was captured on 05/15. He had delayed responses to questions and was unable to remember a recall phrase. These were considered typical of one of the events that the patient was having at home. Review of the EEG did not demonstrate an associated epileptiform abnormality. In fact, throughout the duration of the admission there were no epileptiform abnormalities observed. The EEG demonstrated a normal waking and sleep background. However, typical zoning out spells with associated abnormal body movements were not captured. The episode of feeling hot and having delayed responses was consistent with a diagnosis of psychogenic nonepileptic attacks (PNEA). This diagnosis was presented to the patient by Dr Farley. We discussed, in detail, the unconscious nature of these attacks, the mind-body connection including the power of the unconscious mind, the frequency of PNEA (one-third of our cases), that people with PNEA are not crazy, and that these attacks are real; that is, people with PNEA are not faking the attacks and do not have overt conscious control over the attacks as they arise in the subconscious mind. Sometimes with this information, the attacks stop. We provided instructions that if the attacks persist, counseling may help. We discussed first aid for these attacks: those around should allow the attacks to run their course and then the patient should return to you prior activity or rest as needed. Since these attacks pose no risk for damage to the brain, there is no reason to go to the Emergency Department unless there is a significant injury (presumably inadvertent). Once these attacks have resolved for over a month, activity restrictions can be lifted, although on days that she does not feel well, activities should be restricted. We recommend counseling. We provided the patient with our brochure discussing PNEA. However, since his typical episodes of zoning out were not captured, the overall results of the monitoring session are inconclusive and this was also discussed with the patient. It was explained that it's highly unlikely that these events are epileptic seizures, but we cannot be 100% certain without witnessing them. Therefore, it was recommended that he remain on zonisamide but discontinue Depakote. Discharge Examination: Same as admission Destination: Home. Diet: Regular. Follow-up: with Dr Duffy on August 03. Home Medications Medication Instructions Recorded Confirmed Type Zonisamide(NF) [Zonegran(NF)] 200 mg PO BID 04/08/14 05/15/16 History Icosapent Ethyl [Vascepa] 2 tab PO BID 05/15/16 05/15/16 History traZODone TAB* [Desyrel TAB*] 3 tab PO BEDTIME PRN 05/15/16 05/15/16 History
--- NOTE | 2016-05-22 09:19 | PN ---
Epilepsy Service Progress Note - Subjective DOS 05/22/16 No overnight events. Patient has no new questions today. - Medications Active Medications: Bismuth Subsalicylate (Peptic Relief*) 524 mg PO QID PRN PRN Reason: HEARTBURN Last Admin: 05/21/16 20:34 Dose: 524 mg Diphenhydramine HCl (Benadryl Po*) 25 mg PO Q6H PRN PRN Reason: ITCHING Ibuprofen (Motrin Tab*) 400 mg PO Q6H PRN PRN Reason: PAIN Last Admin: 05/22/16 07:24 Dose: 400 mg Lorazepam (Ativan Inj*) 1 mg IV Q8H PRN PRN Reason: Generalized Tonic Clonic Seizu Pto Icosapent Ethyl ([Vascepa]) 2 tab PO BID TALA Last Admin: 05/21/16 20:34 Dose: 2 tab Trazodone HCl (Desyrel Tab*) 150 mg PO BEDTIME PRN PRN Reason: ANXIETY/INSOMNIA Last Admin: 05/21/16 23:49 Dose: 150 mg Zonisamide (Zonegran (Nf)) 200 mg PO BID [facility] Last Admin: 05/21/16 20:55 Dose: 200 mg EMU Diagnostics - Diagnostic Most Recent Vital Signs: Vital Signs: Temp Pulse Resp BP Pulse Ox 98.2 F 78 18 108/70 97 05/22/16 07:25 05/22/16 07:25 05/22/16 07:25 05/22/16 07:25 05/22/16 07:25 Lab Results: Laboratory Tests 05/15/16 05/16/16 18:05 01:34 POC Glucose (mg/dL) 93 84 Interim video-EEG long-term monitoring report: #01 05/15: Normal background, PDR 9. Normal sleep background. Patient had an event of feeling "out of body", then hot, associated with delayed responses and inability to remember a recall phrase at 6pm. This was not associated with any change in the background EEG. No epileptiform discharges. No seizures. #02 05/16: No change in background. No discharges, no seizures. No events #03 05/17: No change in background. No discharges, no seizures. No events. #04 05/18: Patient had event of chest pain, tachycardia, shortness of breath and was somewhat slow to respond. No changes in EEG associated with this. No change in background, no discharges, no seizures. #05 05/19: Pressed event button for feeling jittery while trying to fall asleep. No EEG changes. Background otherwise unchanged. #06 05/20: Photic induction performed, no typical event elicited though pt reported feeling jittery. No change in background, no discharges, no seizures. EMU Exam - Exam Physical/Neurological Exam: Physical Exam: General: Well appearing in no acute distress. On observation, his speech is fluent. No dysarthria. Hearing intact to voice. Moves all extremities with full strength. EMU Progress Note Assessment/P - Assessment/Plan Assessment: 45 year old man with a history of seizures since age 13 which have changed in character somewhat over the years. He has episodes of zoning out followed by abnormal body movements which were previously characterized as "like an inch worm" by his fisalome, but over the last 2 years he's described as banging his against the floor once he falls and kicking his legs. He also has new episodes of an out of body feeling followed by feeling hot. One event of out of body and feeling hot captured on 05/15. He had delayed responses to questions and was unable to remember a recall phrase. This was not associated with changes in the background EEG and was non-epileptic in nature. BG was checked during the spell and was normal. Episode of chest pain, SOB and tachycardia on 05/18 not associated with EEG changes. Photic induction on 05/18 and 05/20 negative. Episode of feeling jittery on 05/20 during sleep deprivation not associated with EEG changes. No zoning out episodes captured yet. Discussed with patient that there remains uncertainty around his diagnosis since a typical event was not captured. however, EEG has been normal throughout and this combined with his history of events and risk factors makes psychogenic events quite likely. Nevertheless, can't be certain these are not epileptic since they were not witnessed. He says Depakote caused him to have mood swings and I suggested he go back on zonisamide alone. he was agreeable. Explained that the episode of out of body sensation followed by feeling hot was non- epileptic. PNEA brochure given and suggested he enter counseling. Also discussed with sandy last evening. Plan: * d/c long-term video EEG * Depakote discontinued 05/17, not restarted. * zonisamide stopped on 05/15, restarted 05/21 pm at 200mg BID * FU with Dr Duffy August 03 * Discharge home
[2016-05-22] MEDS: ICOSAPENT ETHYL PO SCH (09:20)
[2016-05-22] MEDS: ZONISAMIDE 50 MG PO SCH (09:20)
== END 2016-05-22 09:15 | disposition home or self-care (01) | DRG 101 ==
LOC: EMU 14:10
PROVIDERS: ADMIT Psychiatry & Neurology Neurology; ATTEND Psychiatry & Neurology Neurology
PROC: 4A10X4Z Monitoring of Central Nervous Electrical Activity, External Approach (ICD-10-PCS; principal; 2016-05-15)
DX: G40.909 Epilepsy, unspecified, not intractable, without status epilepticus (principal); F32.9 Major depressive disorder, single episode, unspecified; Z62.810 Personal history of physical and sexual abuse in childhood; F41.9 Anxiety disorder, unspecified; E78.00 Pure hypercholesterolemia, unspecified; M54.5 Low back pain; G89.29 Other chronic pain; R11.0 Nausea; R06.02 Shortness of breath; R07.9 Chest pain, unspecified; R00.0 Tachycardia, unspecified; Z91.14 Patient's other noncompliance with medication regimen; Z82.49 Family history of ischemic heart disease and other diseases of the circulatory system; Z82.0 Family history of epilepsy and other diseases of the nervous system; Z87.891 Personal history of nicotine dependence
CPT/HCPCS: 36415; 83036; 93005; 95951; A9270-GY

== ENCOUNTER → 2016-06-03 12:10 | Day surgery (SDC) | payer MEDICARE, MEDICAID ==
--- NOTE | 2016-05-26 17:41 | HP ---
PREOPERATIVE HISTORY AND PHYSICAL: DATE OF PREOPERATIVE HISTORY AND PHYSICAL EXAMINATION: 05/25/16 DATE OF ADMISSION: 06/03/16 This patient is scheduled for Same-Day Surgery admission by Dr. Bustillo on 06/03/16. ATTENDING SURGEON: Andrew Bustillo MD (dictated by Og Keating NP) CHIEF COMPLAINT: Umbilical hernia. HISTORY OF PRESENT ILLNESS: The patient is a 45-year-old male recently evaluated by Dr. Bustillo for possible ventral hernia. The patient describes a 2- year history of worsening upper abdominal pain. The patient is relieved with rest and exacerbated by lifting items. He denies any nausea, vomiting, or change in bowel habits or fever or chills. Dr. Bustillo examined the patient and noted a large rectus diastasis that extends inferiorly into a small umbilical hernia. Dr. Bustillo has recommended open umbilical hernia repair with possible mesh and described the nature of the surgical procedure, the rationale for the procedure, the relevant risks and benefits, and today I reviewed the typical postoperative care and recovery. The patient has had a chance to ask questions and stated that he understands the information and is satisfied with the answers given to his questions. He will sign surgical consent on the day of surgery. PAST MEDICAL HISTORY: Significant for a seizure disorder described as psychogenic nonepileptic seizures; the patient was hospitalized at [facility] from 05/15/16 through 05/22/16 for a seizure workup completed by Dr. Farley and medications were adjusted. PAST SURGICAL HISTORY: Limited to eye surgery, age 4. MEDICATIONS: 1. Zonisamide 200 mg p.o. b.i.d. 2. Vascepa 1 g 2 tablets b.i.d. 3. Trazodone, dose unspecified 3 tablets at bedtime as needed. 4. Sudafed 30 mg 2 tablets every 4 hours as needed. 5. Aleve [id number] as needed. ALLERGIES: No known drug allergies. He does have TAPE sensitivity with associated skin irritation. REVIEW OF SYSTEMS: He denies any cardiac conditions or complaint. Denies any history of deep vein thrombosis or pulmonary embolism; denies any respiratory conditions or complaints and quit smoking in 1996; denies any previous anesthesia reactions; denies any gastrointestinal conditions or complaints; denies any genitourinary conditions or complaints; he has a history of seizure disorder and underwent a planned seizure workup at [facility] when he was admitted on 05/15/[address] Farley and he is also followed by Dr. Duffy. He was diagnosed with psychogenic nonepileptic seizures and his medications were adjusted. He has not had any episodes since discharge. He denies any bleeding tendencies and has never received a blood transfusion; he suffers with chronic back pain and is on disability. He has bouts of anxiety and depression. FAMILY HISTORY: Mother , age 68 with lung cancer. Father , age 59 with heart disease. No known anesthesia complications, bleeding tendencies, or clotting disorders. SOCIAL HISTORY: He was accompanied today by his girlfriend who is very supportive; he quit smoking in 1996 and denies the use of alcohol or other substances and is on disability. PHYSICAL EXAMINATION GENERAL SURVEY: The patient is a 45-year-old male, overweight, well developed, in no acute distress. VITAL SIGNS: Height 74 inches, weight 254 pounds, body mass index 32.6, blood pressure 118/76, pulse 78 and regular, respiratory rate 16, and temperature 97.6. HEENT: Benign. NECK: Supple. No cervical lymphadenopathy. BACK: No CVA tenderness. LUNGS: Breath sounds bilaterally clear and equal. HEART: Regular rate and rhythm. No murmurs or rubs appreciated. ABDOMEN: Active bowel sounds, obese, soft, and nontender throughout. Large rectus diastasis that extends inferiorly into a small umbilical hernia. No obvious organomegaly, but exam is limited by body habitus. GENITALIA: Exam is deferred. RECTAL: Exam is deferred. EXTREMITIES: Warm without edema or skin ulcerations. NEUROLOGIC: Alert and oriented x3. Steady gait. SKIN: Warm, dry, and intact. IMPRESSION: Umbilical hernia. PLAN/RECOMMENDATIONS: Same-Day Surgery admission to Dr. Bustillo's service on 04/21 for open umbilical hernia repair with mesh. OG KEATING NP CC: Andrew Bustillo MD; [facility]; Dr. Latham * [id number]/[facility] #: [id number] [facility]
[~2016-06-03 12:10] MED LIST: Buffered Lidocaine 1% SYR 3ML* 3 ML/SYR SYRINGE INTRADERM ONE; Bupivacaine 0.5% W/EPI SDV* 30 ML VIAL ONE; Lidocaine 1% INJ* 10 MG/ML 30 ML SDV ONE; Lidocaine 2% PF * 5 ML VIAL ONE; Midazolam* 1 MG/ML 5 ML VIAL (5 MG) ONE; Propofol* 10 MG/ML 20 ML BTL IV PUSH ONE; Sodium Citrate/Citric Acid* 15 ML UDC ONE; Sodium Citrate/Citric Acid* 15 ML UDC PO ONE; ceFAZolin 2 GM PREMIX (*) 2 GM/50 ML BAG IVPB ONE; fentaNYL* 50 MCG/ML 2 ML VIAL (100 MCG VIAL) ONE
--- NOTE | 2016-06-03 15:31 | SURGPN ---
Brief Operative Note - Surgery Procedures: Procedures Pre-OP Diagnoses: umbilical hernia Post-op Diagnosis: same Procedure: open umbilical hernia repair with mesh Surgeon: Iwona Asst: Elayne Ohara Anethesia: Local LOVE Urrutia EBL: minimal IVF: minimal Specimen: none Drains: none
[2016-06-03 15:57] VITALS: BP 128/73
--- NOTE | 2016-06-17 01:17 | OP ---
DATE OF OPERATION: 06/03/16 - [facility] DATE OF : 68 SURGEON: Justino Bustillo MD [employer] LICENSE CLERK: BRET student, Katarzyna Holly ANESTHESIOLOGIST: Dr. Urrutia. ANESTHESIA: Local MAC. PRE-OP DIAGNOSIS: Symptomatic umbilical hernia. POST-OP DIAGNOSIS: Symptomatic umbilical hernia. OPERATIVE PROCEDURE: Open umbilical hernia repair with mesh. ESTIMATED BLOOD LOSS: Minimal blood loss. FLUIDS: Minimal crystalloid fluid given. SPECIMEN: None. DRAINS: None. DESCRIPTION OF PROCEDURE: The patient was identified in the preoperative area and marked, brought to the operating room and placed on the operating table in the supine position. Preoperative antibiotics were given. Sequential devices were placed on bilateral lower extremities. Gentle sedation was given. The patient's abdominal hair was clipped and the abdomen was prepped and draped in a standard surgical fashion and a time-out was performed. An infraumbilical incision was made after injection of lidocaine, this was deepened down to the anterior fascia inferiorly and laterally. A window was made around the umbilical skin. A [place] drain was placed around this. With the retraction on the Mason drain, sharp dissection was then carried out to remove the umbilical skin from the hernia sac. Hernia defect was approximately 1.5 cm. This was reduced, noted to be mostly a preperitoneal fat , this was reduced under the hernia defect and blunt dissection was carried out to make a space below the fascia to allow for 4.3-cm Bard mesh. It was placed into the preperitoneal space and allowed to unfurl. It was tacked inferiorly, superiorly, and also laterally. The defect was also reapproximated with 0 Polysorb sutures. The 0 Polysorb sutures were used in all cases as it is a typical fashion. Wound was then irrigated. Hemostasis was achieved and umbilical skin was tacked down with 2-0 Polysorb sutures and the defect was closed with 3-0 Polysorb suture followed by 4-0 Monocryl subcuticular suture. Steri-Strips and sterile dressing were applied. The patient tolerated the procedure well and was transferred to the PACU in stable condition. CC: [facility]; Dr. Yaron Latham* [id number]/[facility] #: [id number] [facility]ITAL[facility]
== END | disposition home or self-care (01) ==
LOC: OR 12:10
PROVIDERS: ATTEND Surgery
DX: K42.9 Umbilical hernia without obstruction or gangrene (principal); E66.9 Obesity, unspecified; Z68.32 Body mass index [BMI] 32.0-32.9, adult; Z87.891 Personal history of nicotine dependence; R56.9 Unspecified convulsions
CPT/HCPCS: A9270-GY; C1781; J0690; J2250; J2704; J3010

== ENCOUNTER 2017-04-13 17:34 | Emergency (ER) | payer MEDICARE, MEDICAID ==
[2017-04-13] MEDS ORDERED: oxyCODONE/Acetamin 5/325 MG* TAB PO ONE (18:22)
--- NOTE | 2017-04-13 18:25 | RAD ---
INDICATION: Fall. Left-sided rib pain COMPARISON: Chest x-ray same date TECHNIQUE: Noncontrast axial source images were obtained from the thoracic inlet to the hemidiaphragms. Coronal and sagittal reconstructed images were acquired. The visualized neck to include the thyroid appear normal. Chest wall: There are no acute abnormalities of the bony thorax or chest wall. There is no supraclavicular, infraclavicular, or axillary lymphadenopathy. Lungs : There are no pulmonary parenchymal masses or infiltrates. There is no pneumothorax. The pulmonary interstitium appears normal. There are no endobronchial lesions. Cardiomediastinal structures: The heart is normal in size. There is no pericardial effusion. There is no evidence of aortic aneurysm or dissection. The pulmonary vessels appear normal. There is no mediastinal or hilar adenopathy. The esophagus appears normal. Pleura : There are no pleural-based masses or effusions. Other: There is hepatomegaly with hepatic steatosis. IMPRESSION: NO CT ABNORMALITIES OF THE CHEST. HEPATOMEGALY WITH HEPATIC STEATOSIS.
--- NOTE | 2017-04-13 18:33 | ED ---
Upper Extremity Pain - HPI Summary HPI Summary: 46M presents with left sided rib pain and back pain s/p fall today. He states that he slipped on some ice and that he landed on his left ribs. He denies any head injury. He denies any LOC. He denies any neck pain. He states that he did not have chest pain or SOB prior to fall. He states the pain is musculoskeletal and is not cardiac related. He states it hurts most when he takes a deep breath. He denies any abdominal pain. He has not taken anything for pain. He has not cardiac history. He denies any upper or lower extremity pain. He denies any cough. He has history of seizure disorder. - History of Current Complaint Chief Complaint: EDChestWallPain Stated Complaint: FALL/CHEST PAIN Time Seen by Provider: 04/13/17 17:46 - Allergies/Home Medications Allergies/Adverse Reactions: Allergies Allergy/AdvReac Type Severity Reaction Status Date / Time No Known Allergies Allergy Verified 06/03/16 12:37 PMH/Surg Hx/FS Hx/Imm Hx Endocrine/Hematology History: Denies: Hx Diabetes Cardiovascular History: Reports: Hx Hypercholesterolemia Denies: Hx Hypertension, Hx Pacemaker/ICD Respiratory History: Reports: Hx Sleep Apnea - self-diagnosed Denies: Hx Asthma GI History: Reports: Other GI Disorders - umbilical hernia History: Reports: Hx Kidney Infection - none recently Denies: Hx Renal Disease Musculoskeletal History: Reports: Hx Back Problems - chronic lower back pain starting in 2002 Sensory History: Reports: Hx Contacts or Glasses - glasses Denies: Hx Cataracts, Hx Eye Injury, Hx Eye Prosthesis, Hx Glaucoma, Hx Legally Blind, Hx Macular Degeneration, Hx Vision Problem, Hx Deafness, Hx Hearing Aid, Hx Hearing Problem Opthamlomology History: Reports: Hx Contacts or Glasses - glasses Denies: Hx Cataracts, Hx Eye Injury, Hx Eye Prosthesis, Hx Glaucoma, Hx Legally Blind, Hx Macular Degeneration, Hx Vision Problem Neurological History: Reports: Hx Headaches - sinus, Hx Seizures - hopsitalized recently 05/15-05/22/16 Denies: Hx Dementia, Hx Developmental Delay, Hx Migraine, Hx Nerve Disease, Hx Spinal Cord Injury, Hx Transient Ischemic Attacks (TIA), Other Neuro Impairments/Disorders Psychiatric History: Reports: Hx Anxiety, Hx Depression Denies: Hx Panic Disorder, Hx Substance Abuse - Surgical History Surgery Procedure, Year, and Place: 1977 bilat eye surgery Hx Anesthesia Reactions: No Infectious Disease History: No Infectious Disease History: Denies: Hx Clostridium Difficile, Hx Hepatitis, Hx Human Immunodeficiency Virus (HIV), Hx of Known/Suspected MRSA, Hx Shingles, Hx Tuberculosis, Hx Known/ Suspected VRE, Hx Known/Suspected VRSA, History Other Infectious Disease, Traveled Outside the [place] in Last 30 Days - Family History Known Family History: Positive: Hypertension, Seizure Disorder - Social History Alcohol Use: None Alcohol Amount: 1-2 beers Substance Use Type: Reports: None Hx Tobacco Use: No Smoking Status (MU): Former Smoker Length of Time of Smoking/Using Tobacco: 3-4 years Have You Smoked in the Last Year: No Review of Systems Negative: Fever Positive: Other - left rib and back pain Positive: Shortness Of Breath. Negative: Cough Negative: Abdominal Pain All Other Systems Reviewed And Are Negative: Yes Physical Exam Triage Information Reviewed: Yes Vital Signs On Initial Exam: Initial Vitals Temp Pulse Resp BP Pulse Ox 98 F 81 18 156/70 96 04/13/17 17:39 04/13/17 17:39 04/13/17 17:39 04/13/17 17:39 04/13/17 17:39 Vital Signs Reviewed: Yes Appearance: Positive: Well-Appearing Skin: Positive: Warm, Dry Head/Face: Positive: Normal Head/Face Inspection Eyes: Positive: Normal, Conjunctiva Clear Respiratory/Lung Sounds: Positive: Clear to Auscultation, Breath Sounds Present , Other - tendernes over left lateral ribs 5-10, no step off Cardiovascular: Positive: Normal, RRR Abdomen Description: Positive: Nontender, Soft Bowel Sounds: Positive: Present Musculoskeletal: Positive: Normal Neurological: Positive: Normal Psychiatric: Positive: Normal - Lane Coma Scale Coma Scale Total: 15 Diagnostics - Vital Signs Vital Signs Temp Pulse Resp BP Pulse Ox 04/13/17 17:39 98 F 81 18 156/70 96 - Laboratory Lab Statement: Any lab studies that have been ordered have been reviewed, and results considered in the medical decision making process. - CT chest CT Interpretation: No Acute Changes CT Interpretation Completed By: Radiologist Course/Dx - Course Course Of Treatment: 46M presents with left sided rib pain and back pain s/p fall today. He states that he slipped on some ice and that he landed on his left ribs. He denies any head injury. He denies any LOC. He denies any neck pain. He states that he did not have chest pain or SOB prior to fall. He states the pain is musculoskeletal and is not cardiac related. He states it hurts most when he takes a deep breath. He denies any abdominal pain. He has not taken anything for pain. He has not cardiac history. He denies any upper or lower extremity pain. He denies any cough. He has history of seizure disorder. on exam has tenderness over left lateral ribs 5-10. lungs CTA. patient does not want cardiac work up as states is here for imaging of chest. chest CT normal. told to take tyenlol and ibuprofen. patient understand and agrees with plan. - Diagnoses Differential Diagnosis/HQI/PQRI: Positive: Contusion, Fracture (Closed), Sprain Provider Diagnoses: Rib pain on left side Discharge - Discharge Plan Condition: Good Disposition: HOME Patient Education Materials: Rib Contusion (ED) Referrals: Yaron Latham MD [Primary Care Provider] - Additional Instructions: Place ice on the area Take deep breath throughout the day Take Ibuprofen or Tylenol for pain every 6 hours Follow up with primary care physician within 5 days Return to ED if develop new productive cough, fever, or any new or worsening symptoms
[2017-04-13 19:06] VITALS: BP 140/75
== END 2017-04-13 19:08 | disposition home or self-care (01) ==
LOC: ED 17:34
DX: R07.9 Chest pain, unspecified (principal); R06.02 Shortness of breath; M54.9 Dorsalgia, unspecified; Z87.891 Personal history of nicotine dependence; Z83.79 Family history of other diseases of the digestive system
CPT/HCPCS: 71250; 99282; A9270-GY

== ENCOUNTER 2018-09-03 15:33 | Emergency (ER) | payer MEDICARE, MEDICAID ==
--- NOTE | 2018-09-03 16:02 | UC ---
Complaint Male HPI - HPI Summary HPI Summary: 47 y/o male presents to the urgent care accompany by c/o left flank pain for the past weeks. At the beginning, he though it was his hx of chronic b/L hip arthritis. Pain has worsen w/ the day. Today pain is 10/10 radiating to his left lower abdomen. Today he hasn't been able to urinate well. He took Aleve PO, 4 tabs around 4 hrs ago w/o any improvement. Pt has a normal BM yesterday and denies fever, N/V/D, SOB, chest pain, dizziness or Hx of kidney stones. - History of Current Complaint Stated Complaint: LEFT FLANK PAIN Time Seen by Provider: 09/03/18 15:50 Hx Obtained From: Patient Onset/Duration: Gradual Onset, Lasting Weeks, Still Present, Worse Since - yesterday Timing: Constant, Lasting Days - 1 day Severity Initially: Mild Severity Currently: Severe Pain Intensity: 10 Pain Scale Used: 0-10 Numeric Location: Flank - left flank pain radiating to the left lower abdomen Radiates to: left lower abdomen Character: Sharp Aggravating Factor(s): Palpation, Other - unable to urinate Alleviating Factor(s): Meds - Aleve Associated Signs And Symptoms: Positive: Negative. Negative: Back Pain - left, Hematuria, Dysuria, Blood in Stool, Rectal Pain, Nausea - Risk Factors Testicular Torsion: Negative - Allergies/Home Medications Allergies/Adverse Reactions: Allergies Allergy/AdvReac Type Severity Reaction Status Date / Time No Known Allergies Allergy Verified 09/03/18 15:46 Home Medications: Home Medications Naproxen Sodium [Naproxen 220 mg] 880 mg PO DAILY 09/03/18 [History Confirmed ] PMH/Surg Hx/FS Hx/Imm Hx Previously Healthy: Yes Other Endocrine History: b/L hip arthritis Neurological History: Seizures - Surgical History Surgical History: Yes Surgery Procedure, Year, and Place: 1977 bilat eye surgery. hernia repair - Family History Known Family History: Positive: Hypertension, Seizure Disorder - Social History Occupation: Employed Full-time Lives: With Family Alcohol Use: None Alcohol Amount: 1-2 beers Substance Use Type: None Smoking Status (MU): Former Smoker Length of Time of Smoking/Using Tobacco: 3-4 years Have You Smoked in the Last Year: No When Did the Patient Quit Smoking/Using Tobacco: 1996 - Immunization History Most Recent Influenza Vaccination: none this season Most Recent Tetanus Shot: over 10 years Most Recent Pneumonia Vaccination: none Review of Systems All Other Systems Reviewed And Are Negative: Yes Constitutional: Positive: Negative Skin: Positive: Negative Eyes: Positive: Negative ENT: Positive: Negative Respiratory: Positive: Negative Cardiovascular: Positive: Negative Gastrointestinal: Positive: Other - left flank pain Genitourinary: Positive: Other - difficulty urinating Motor: Positive: Negative Neurovascular: Positive: Negative Musculoskeletal: Positive: Negative Neurological: Positive: Negative Psychological: Positive: Negative Is Patient Immunocompromised?: No Physical Exam - Summary Physical Exam Summary: Vital Signs Reviewed: Yes General:Patient is a well developed and nourished obese male who is sitting comfortable in the examining table. Patient is w/ mild pain distress. Eyes: Positive: Conjunctiva Clear - PERRLA, EOMI, fundi grossly normal ENT: Positive: Normal ENT inspection, Hearing grossly normal, Pharynx normal, TMs normal Neck: Positive: Supple, Nontender, No Lymphadenopathy Respiratory: Positive: Chest non-tender, Lungs clear, Normal breath sounds, No respiratory distress Cardiovascular: Positive: RRR,S1 and S2 present, No Murmur, Pulses Normal, Brisk Capillary Refill Abdomen Description: Positive: Abd: Flat with no distention. No surface trauma , scars, incisions. hyperactive bowel sounds present in all four quadrants. No tenderness, guarding, rigidity to palpation. No masses palpated, no pulsation in epigastric area. No organomegaly. Negative Seymour signs. No periumbilical tenderness. No rebound in the lower quadrants. NT over McBurney s point. Mild tenderness on deep palpation of LUQ Good femoral pulses bilaterally. No hernia noted. Positive left CVAT, negative CVAT on RT side. Musculoskeletal: Positive: Strength Intact, ROM Intact, No Edema,FROM in all major joints, no edema, no cyanosis or clubbing. Neuro: Alert and oriented x 3. No acute neurological deficits. Speech is normal. Psychological: WNL Skin: Dry and warm Triage Information Reviewed: Yes Complaint Male Course/Dx - Course Course Of Treatment: 47 y/o male presents to the urgent care accompany by c/o left flank pain for the past weeks. At the beginning, he though it was his hx of chronic b/L hip arthritis. Pain has worsen w/ the day. Today pain is 10/10 radiating to his left lower abdomen. Today he hasn't been able to urinate well. He took Aleve PO, 4 tabs around 4 hrs ago w/o any improvement. Pt has a normal BM yesterday and denies fever, N/V/D, SOB, chest pain, dizziness or Hx of kidney stones. Hx obtained. PE: Pt hemodynamically stable, A&OX3, w/ mild pain distress. Pt w/ positive left CVAT and LUQ abdominal tenderness on deep palpation. Pt hasn't been able to give us urine. At this moment no CT scan available. He drank a bottle of water and still unable ot give us urine. Pt need a CT to r/o a kidney stone or other abnormality w/ his kidney. I discussed Pt's symptoms w/ DR Woods and she agreed Pt's should go to the ER for further evaluation and treatment. Pt ws offered ambulance transfer and he declined. states he will take Pt by private car. Pt left the clinic hemodynamically stable, ambulating, A&OX3. - Differential Dx/Diagnosis Differential Diagnosis/HQI/PQRI: Pyelonephritis, Ureteral Calculi, Urinary Tract Infection, Other - ulcer, Provider Diagnosis: Acute left flank pain Discharge - Sign-Out/Discharge Documenting (check all that apply): Patient Departure - Pt highly recommend to go to the [facility] for further management on his left flank pain sicn at this time no CT scan availabe. All imaging exams completed and their final reports reviewed: No Studies - Discharge Plan Condition: Stable Disposition: HOME-RECOMMEND TO ED Patient Education Materials: Flank Pain (ED) Referrals: Yaron Latham MD [Primary Care Provider] - Additional Instructions: I think you need a higher level or care for your presenting symptoms. I highly recommend you to go to the ER for further evaluation and treatment. The risks of not going can be , sepsis, kidney stone, or any other abnormality etc. At this moment there is no CT scan available to r/o kidney stone - Billing Disposition and Condition Condition: STABLE Disposition: Home-Recommend to ED
[2018-09-03 16:07] VITALS: BP 144/81
== END 2018-09-03 16:32 | disposition home health service (06) ==
LOC: UCEAST 15:33
DX: R10.9 Unspecified abdominal pain (principal); Z87.891 Personal history of nicotine dependence
CPT/HCPCS: 99212; G0463

== ENCOUNTER 2018-09-03 16:45 | Emergency (ER) | payer MEDICARE, MEDICAID ==
[2018-09-03 17:34] LABS: Urine Appearance Clear; Urine Bilirubin Negative (Negative); Urine Blood Negative (Negative); Urine Color Yellow; Urine Glucose Negative (Negative); Urine Ketones Negative (Negative); Urine Nitrite Negative (Negative); Urine Protein Negative (Negative); Urine Specific Gravity 1.016 (1.010-1.030); Urine Urobilinogen Negative (Negative)
[2018-09-03] MEDS ORDERED: Ondansetron INJ* 2 MG/ML VIAL IV ONE (18:35)
[2018-09-03] MEDS ORDERED: Ketorolac INJ* 30 MG/ML 1 ML VIAL IV PUSH ONE (18:35)
[2018-09-03] MEDS ORDERED: NS 0.9% 1000 ML** 1,000 ML IV ONE (18:35)
--- NOTE | 2018-09-03 18:37 | ED ---
Abdominal Pain/Male - HPI Summary HPI Summary: This patient is a 47 year old M [place] [facility] [place] with a chief complaint of waxing and waning stabbing left flank pain for the past two weeks with radiation to the medial abdomen and suprapubic area. Patient reports chronic hip and back pain. Pain worsens with walking to 10/10 in severity. Patient denies hematuria, dysuria, fever, chills, and vomiting. Denies PMHx except for hypercholesterolemia. - History of Current Complaint Chief Complaint: EDFlankPain Stated Complaint: LEFT KIDNEY ISSUE, SENT FROM PER PT Time Seen by Provider: 09/03/18 18:18 Hx Obtained From: Patient Onset/Duration: Lasting Weeks Timing: Constant Severity Currently: Severe Pain Intensity: 10 Pain Scale Used: 0-10 Numeric Location: Flank Radiates: Yes Radiates to: Other - suprapubic Character: Sharp Alleviating Factor(s): Nothing Associated Signs And Symptoms: Negative: Fever, Urinary Symptoms - Allergies/Home Medications Allergies/Adverse Reactions: Allergies Allergy/AdvReac Type Severity Reaction Status Date / Time No Known Allergies Allergy Verified 09/03/18 18:24 Home Medications: Home Medications traZODone TAB* 50 mg PO BEDTIME 09/03/18 [History Confirmed 09/03/18] PMH/Surg Hx/FS Hx/Imm Hx Endocrine/Hematology History: Denies: Hx Diabetes, Hx Thyroid Disease Cardiovascular History: Reports: Hx Hypercholesterolemia Denies: Hx Hypertension, Hx Pacemaker/ICD Respiratory History: Reports: Hx Sleep Apnea - self-diagnosed Denies: Hx Asthma, Hx Chronic Obstructive Pulmonary Disease (COPD) GI History: Reports: Other GI Disorders - umbilical hernia Denies: Hx Ulcer History: Denies: Hx Renal Disease Musculoskeletal History: Reports: Hx Back Problems - chronic lower back pain starting in 2002 Sensory History: Reports: Hx Contacts or Glasses - glasses Denies: Hx Cataracts, Hx Eye Injury, Hx Eye Prosthesis, Hx Glaucoma, Hx Legally Blind, Hx Macular Degeneration, Hx Vision Problem, Hx Deafness, Hx Hearing Aid, Hx Hearing Problem Opthamlomology History: Reports: Hx Contacts or Glasses - glasses Denies: Hx Cataracts, Hx Eye Injury, Hx Eye Prosthesis, Hx Glaucoma, Hx Legally Blind, Hx Macular Degeneration, Hx Vision Problem Neurological History: Reports: Hx Headaches - sinus, Hx Seizures - hopsitalized recently 05/15-05/22/16 Denies: Hx Dementia, Hx Developmental Delay, Hx Migraine, Hx Nerve Disease, Hx Spinal Cord Injury, Hx Transient Ischemic Attacks (TIA), Other Neuro Impairments/Disorders Psychiatric History: Reports: Hx Anxiety, Hx Depression Denies: Hx Panic Disorder, Hx Substance Abuse - Surgical History Surgery Procedure, Year, and Place: 1977 bilat eye surgery. hernia repair Hx Anesthesia Reactions: No Infectious Disease History: No Infectious Disease History: Denies: Hx Clostridium Difficile, Hx Hepatitis, Hx Human Immunodeficiency Virus (HIV), Hx of Known/Suspected MRSA, Hx Shingles, Hx Tuberculosis, Hx Known/ Suspected VRE, Hx Known/Suspected VRSA, History Other Infectious Disease, Traveled Outside the [place] in Last 30 Days - Family History Known Family History: Positive: Hypertension, Seizure Disorder - Social History Alcohol Use: None Alcohol Amount: 1-2 beers Substance Use Type: Reports: None Hx Tobacco Use: No Smoking Status (MU): Former Smoker Length of Time of Smoking/Using Tobacco: 3-4 years Have You Smoked in the Last Year: No Review of Systems Negative: Fever Negative: Vomiting Positive: flank pain. Negative: dysuria, frequency Positive: Myalgia - chronic back pain All Other Systems Reviewed And Are Negative: Yes Physical Exam - Summary Physical Exam Summary: GENERAL: Patient is a well-developed and nourished M who is lying in the stretcher. Patient is not in any acute respiratory distress. HEAD AND FACE: Normocephalic EYES: PERRLA, EOMI x 2. EARS: Hearing grossly intact. MOUTH: Oropharynx within normal limits. NECK: Supple, trachea is midline, no adenopathy, no JVD, no carotid bruit. CHEST: Symmetric, no tenderness at palpation LUNGS: Clear to auscultation bilaterally. No wheezing or crackles. CVS: Regular rate and rhythm, S1 and S2 present, no murmurs or gallops appreciated. ABDOMEN: Soft. Bowel sounds are normal. No abnormal abdominal pulsations. Bilateral CVA tenderness worse on the left EXTREMITIES: Full ROM in all major joints, no edema, no cyanosis or clubbing. NEURO: Alert and oriented x 3. No acute neurological deficits. Speech is normal and follows commands. SKIN: Dry and warm Triage Information Reviewed: Yes Vital Signs On Initial Exam: Initial Vitals Temp Pulse Resp BP Pulse Ox 97.4 F 69 16 157/87 97 09/03/18 16:46 09/03/18 16:46 09/03/18 16:46 09/03/18 16:46 09/03/18 16:46 Vital Signs Reviewed: Yes Diagnostics - Vital Signs Vital Signs Temp Pulse Resp BP Pulse Ox 09/03/18 16:46 97.4 F 69 16 157/87 97 - Laboratory Lab Results: Lab Results 09/03/18 Range/Units 17:26 Urine Color Yellow Urine Appearance Clear Urine pH 5.0 (5-9) Ur Specific [place] 1.016 (1.010-1.030) Urine Protein Negative (Negative) Urine Ketones Negative (Negative) Urine Blood Negative (Negative) Urine Nitrate Negative (Negative) Urine Bilirubin Negative (Negative) Urine Urobilinogen Negative (Negative) Ur Leukocyte Esterase Negative (Negative) Urine Glucose Negative (Negative) Result Diagrams: 09/03/18 18:49 09/03/18 18:49 Lab Statement: Any lab studies that have been ordered have been reviewed, and results considered in the medical decision making process. - CT A/P CT Interpretation Completed By: Radiologist Summary of CT Findings: 1. No CT findings to correlate with patient's symptomatology. 2. Moderate hepatic steatosis (14-28% fat fraction). ED Physician has reviewed this report. Abdominal Pain Male Course/Dx - Course Course Of Treatment: 47 year old M [place] [facility] [place] from with a chief complaint of waxing and waning stabbing left flank pain for the past two weeks with radiation to the medial abdomen and suprapubic area. Patient is given 30mg Toradol, 4mg Zofran, Percocet, and IVF. Bloodwork and UA obtained without signifcant abnormalities. CT A/P reveals, "1. No CT findings to correlate with patient's symptomatology. 2. Moderate hepatic steatosis (14-28% fat fraction). " Aortic dissection not appreaciated on the CT. I discussed results with patient, and he reports feeling better. He is hemodynamically stable and safe for discharge. Strict return precautions given and he will otherwise follow up with his PCP. - Diagnoses Provider Diagnoses: Flank pain Discharge - Sign-Out/Discharge Documenting (check all that apply): Patient Departure - discharge Patient Received Moderate/Deep Sedation with Procedure: No - Discharge Plan Condition: Stable Disposition: HOME Prescriptions: oxyCODONE/Acetamin 5/325 MG* [Percocet 5/325 TAB*] 1 tab PO Q6H PRN #12 tab MDD 4 PRN Reason: Pain Patient Education Materials: Flank Pain (ED) Referrals: Yaron Latham MD [Primary Care Provider] - 2 Days Additional Instructions: RETURN TO THE EMERGENCY DEPARTMENT FOR CHANGING OR WORSENING SYMPTOMS. - Billing Disposition and Condition Condition: STABLE Disposition: Home - Attestation Statements Document Initiated by Scribe: Yes Documenting Scribe: Merlyn Arzate Provider For Whom Scribe is Documenting (Include Credential): Ronny Christian MD Scribe Attestation: Merlyn Guan , scribed for Ronny Christian MD on 09/06/18 at 1243. Scribe Documentation Reviewed: Yes Provider Attestation: The documentation as recorded by the [email or web address] reinoso accurately reflects the service I personally performed and the decisions made by , Ronny Christian MD Status of Scribe Document: Viewed
[2018-09-03 18:56] LABS: ABS Eosinophils 0.2 10^3/ul (0-0.6); ABS Lymphocytes 2.5 10^3/ul (1.0-4.8); ABS Monocytes 0.4 10^3/ul (0-0.8); ABS Neutrophils 4.2 10^3/ul (1.5-7.7); Eosinophil % 2.7 %; Hematocrit 43 % (42-52); Hemoglobin 14.8 g/dL (14.0-18.0); Lymphocyte % 33.9 %; Mean Corpuscular HGB Conc 34 g/dL (31-36); Mean Corpuscular Hemoglobin 30 pg (27-31); Mean Corpuscular Volume 89 fL (80-94); Mean Platelet Volume 9.2 fL (7.4-10.4); Nucleated Red Blood Cells % 0.2; Platelet Count 118 10^3/uL (150-450); Red Blood Count 4.86 10^6 /uL (4.18-5.48); Red Cell Distribution Width 13 % (10.5-15); White Blood Count 7.3 10^3/uL (3.5-10.8)
[2018-09-03 19:04] LABS: Activated Partial Thrombo Time 32.8 seconds (26.0-38.0); INR 1.02 (0.82-1.09)
[2018-09-03 19:13] LABS: ALT 36 U/L (7-52); AST 22 U/L (13-39); Albumin 4.5 g/dL (3.2-5.2); Albumin/Globulin Ratio 2.1 (1-3); Alkaline Phosphatase 48 U/L (34-104); Amylase 23 U/L (29-103); Anion Gap 6 mmol/L (2-11); BUN/Creatinine Ratio 19.8 (8-20); Blood Urea Nitrogen 21 mg/dL (6-24); C Reactive Protein < 1.00 mg/L (<8.01); CO2 Carbon Dioxide 26 mmol/L (22-32); Calcium 9.7 mg/dL (8.6-10.3); Chloride 105 mmol/L (101-111); EGFR African American 90.2 (>60); EGFR Non-African American 74.6 (>60); Globulin 2.1 g/dL (2-4); Glucose 101 mg/dL (70-100); Potassium 3.8 mmol/L (3.5-5.0); Sodium 137 mmol/L (135-145); Total Protein 6.6 g/dL (6.4-8.9)
[2018-09-03] MEDS ORDERED: oxyCODONE/Acetamin 5/325 MG* TAB PO ONE (21:31)
[2018-09-03 21:32] VITALS: BP 137/82
== END 2018-09-03 21:55 | disposition home or self-care (01) ==
LOC: ED 16:45
DX: R10.9 Unspecified abdominal pain (principal); K76.0 Fatty (change of) liver, not elsewhere classified; E78.00 Pure hypercholesterolemia, unspecified; Z87.891 Personal history of nicotine dependence
CPT/HCPCS: 36415; 74176; 80053; 81003; 82150; 83605; 83690; 83735; 85025; 85610; 85730; 86140; 96361; 96374; 96375; 99283; A9270-GY; J1885; J2405

== ENCOUNTER 2019-01-05 17:00 | Emergency (ER) | payer MEDICARE, MEDICAID ==
--- NOTE | 2019-01-05 17:12 | UC ---
Dental HPI - HPI Summary HPI Summary: 48 year old male with poor dentation, no recent dental follow up due to insurance, presents with L sided cheek pain, swelling, worse over past 12 hours. NO fever, chills, no pain with chewing, + pain with cold air. Concerned for salivary stone. Seen by PCP this AM, given pain medication. No prior dental infections. no neck pain, no difficulty with swallowing. 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 hernia repair - Family History Known Family History: Positive: Hypertension, Seizure Disorder, Non-Contributory - Social History Alcohol Use: None Alcohol Amount: 1-2 beers Substance Use Type: None Smoking Status (MU): Former Smoker Length of Time of Smoking/Using Tobacco: 3-4 years Have You Smoked in the Last Year: No When Did the Patient Quit Smoking/Using Tobacco: 1996 - Immunization History Most Recent Influenza Vaccination: none this season Most Recent Tetanus Shot: over 10 years Most Recent Pneumonia Vaccination: none Review of Systems All Other Systems Reviewed And Are Negative: Yes Constitutional: Negative: Fever, Chills ENT: Positive: Dental Pain. Negative: Sore Throat, Ear Ache, Nasal Discharge, Sinus Congestion, Sinus Pain/Tenderness Respiratory: Negative: Shortness Of Breath, Cough Psychological: Positive: Anxious - in pain Is Patient Immunocompromised?: No Physical Exam Triage Information Reviewed: Yes Appearance: Well-Appearing, Well-Nourished, Pain Distress - moderate Vital Signs Reviewed: Yes Eyes: Positive: Conjunctiva Clear ENT: Positive: Pharynx normal, Uvula midline. Negative: Pharyngeal erythema, Tonsillar swelling, Tonsillar exudate, Sinus tenderness Dental: Positive: Gross Decay/Caries @ - multiple., Other: - TTP over L Lower with 1st tooth with gross decay around filling, TT percussion over tooth root, + erythema, + fullness extending into cheek, no TTP over mandible. able to open, close jaw well. no LAD, cerivlca, periaur. no parotid swelling. Neck: Positive: Supple, Nontender, No Lymphadenopathy Neurological: Positive: Alert Psychological Exam: Normal Skin: Negative: Rashes Dental Complaint Course/Dx - Course Course Of Treatment: Potential dental abscess - Antibiotics as prescribed - Go to ER with increased pain, fever > 101, chills, increased swelling, decreased chewing. - Pain medication as sent in by your primary - Motrin/ Tylenol as needed for pain - Follow up with dentist within 2-3 days for follow up, possible extraction - Differential Dx/Diagnosis Differential Diagnosis/Dx: Peridontic Disease, Peritonsillar Abcess, Tonsillitis Provider Diagnosis: Pain, dental Discharge ED - Sign-Out/Discharge Documenting (check all that apply): Patient Departure All imaging exams completed and their final reports reviewed: No Studies - Discharge Plan Condition: Good Disposition: HOME Prescriptions: Penicillin VK 500 MG TAB(NF) [Penicillin VK 500 mg Tab] 500 mg PO QID #40 tab Patient Education Materials: Toothache (ED), Dental Abscess (ED) Referrals: Yaron Latham MD [Primary Care Provider] - Additional Instructions: Potential dental abscess - Antibiotics as prescribed - Go to ER with increased pain, fever > 101, chills, increased swelling, decreased chewing. - Pain medication as sent in by your primary - Motrin/ Tylenol as needed for pain - Follow up with dentist within 2-3 days for follow up, possible extraction - Billing Disposition and Condition Condition: GOOD Disposition: Home
[2019-01-05 17:21] VITALS: BP 129/84
[2019-01-05] MEDS ORDERED: Penicillin G Benzathine 1.2MU* 1,200,000 UNITS/2 ML SYR IM ONE (17:34)
[2019-01-05] MEDS ORDERED: HYDROcodone/ACETAMIN 5-325 MG* 1 TAB PO ONE (17:36)
== END 2019-01-05 18:20 | disposition home or self-care (01) ==
LOC: UCEAST 17:00
DX: K08.89 Other specified disorders of teeth and supporting structures (principal); Z87.891 Personal history of nicotine dependence
CPT/HCPCS: 96372; 99212; G0463; J0558

== ENCOUNTER 2019-01-30 12:13 | Emergency (ER) | payer MEDICARE, MEDICAID ==
[2019-01-30 12:41] VITALS: BP 117/74
[2019-01-30] MEDS ORDERED: Lidocaine 1% MPF ** 5 ML VIAL INJ ONE (12:57)
[2019-01-30] MEDS ORDERED: Tetan/Diph/Pertus SYR(Tdap)* 0.5 ML SYR(BOOSTRIX) use SYR contains LATEX IM ONE (12:58)
--- NOTE | 2019-01-30 13:51 | UC ---
Hand/Wrist HPI - HPI Summary HPI Summary: 48-year-old male comes in with a chief complaint of a laceration to his right thumb. This happened just prior to arrival at home when he was cleaning some dishes and a ceramic bowl broke and cut his right thumb over the PIP. Patient does report that the area has some numbness. It hurts when he moves the thumb but he feels like he can move the thumb in all ranges of motion. Bleeding stopped with direct pressure. He is not sure if he is up-to-date with his tetanus. - History Of Current Complaint Chief Complaint: UCLaceration Stated Complaint: THUMB LAC Time Seen by Provider: 01/30/19 12:50 Pain Intensity: 8 - Allergies/Home Medications Allergies/Adverse Reactions: Allergies Allergy/AdvReac Type Severity Reaction Status Date / Time No Known Allergies Allergy Verified 01/30/19 12:41 Home Medications: Home Medications Mirtazapine [Remeron] 1 tab PO QPM 01/30/19 [History Confirmed 01/30/19] PMH/Surg Hx/FS Hx/Imm Hx Previously Healthy: Yes - Surgical History Surgical History: Yes Surgery Procedure, Year, and Place: 1977 bilat eye surgery. hernia repair - Family History Known Family History: Positive: Hypertension, Seizure Disorder, Non-Contributory - Social History Alcohol Use: Occasionally Alcohol Amount: 1-2 beers Substance Use Type: None Smoking Status (MU): Former Smoker Length of Time of Smoking/Using Tobacco: 3-4 years Have You Smoked in the Last Year: No When Did the Patient Quit Smoking/Using Tobacco: 1996 - Immunization History Most Recent Influenza Vaccination: none this season Most Recent Tetanus Shot: over 10 years Most Recent Pneumonia Vaccination: none Review of Systems All Other Systems Reviewed And Are Negative: Yes Constitutional: Positive: Negative Skin: Positive: Other - SEE HPI Eyes: Positive: Negative ENT: Positive: Negative Respiratory: Positive: Negative Cardiovascular: Positive: Negative Gastrointestinal: Positive: Negative Motor: Positive: Other - SEE HPI Neurovascular: Positive: Other - SEE HPI Musculoskeletal: Positive: Other: - SEE HPI Neurological: Positive: Numbness Psychological: Positive: Negative Is Patient Immunocompromised?: No Physical Exam Triage Information Reviewed: Yes Appearance: Well-Appearing, Well-Nourished, Pain Distress - MILD Vital Signs: Initial Vital Signs Temp 97.9 F 01/30/19 12:36 Pulse 77 01/30/19 12:36 Resp 18 01/30/19 12:36 BP 117/74 01/30/19 12:36 Pulse Ox 96 01/30/19 12:36 Vital Signs Reviewed: Yes Eye Exam: Normal Eyes: Positive: Conjunctiva Clear Neck: Positive: Supple Respiratory: Positive: No respiratory distress Musculoskeletal: Positive: Other: - Right thumb has full range of motion although his great deal of pain especially with right thumb extension. Normal capillary refill no sensation deficit on examination. Neurological: Positive: Alert Psychological: Positive: Age Appropriate Behavior Skin: Positive: Other - There is a 2 cm subcutaneous linear laceration right thumb dorsum of the PIP. Tendon partially visible on examination. I did not see any tendon laceration and the portion of the tenderness and I observed. Procedures - Laceration/Wound Repair 1 Location: upper extremity - 2 cm subcutaneous right thumb PIP dorsum Description: Linear Anesthesia: Local, 1.0%, Lido Betadine Prep?: No - cleaned and irrigated by nursing Laceration/Wound Explored: clean Closure: Single Layer Debridement: none Suture Type: Prolene - 5-0 Number of Sutures: 6 Layer Closure?: No Sterile Dressing Applied?: Yes Hand/Wrist Course/Dx - Course Course Of Treatment: The wound was cleansed. I did not observe the whole extensor tendon of the right thumb. Given the depth of the laceration there is potential for tendon involvement therefore I'm going to have the patient follow-up with orthopedics. In clinic patient was placed in a thumb spica splint by nursing patient neurovascular intact after thumb spica placement. I do not find any neurologic deficit on examination. - Differential Dx/Diagnosis Provider Diagnosis: Laceration of thumb, right Discharge ED - Sign-Out/Discharge Documenting (check all that apply): Patient Departure All imaging exams completed and their final reports reviewed: No Studies - Discharge Plan Condition: Stable Disposition: HOME Patient Education Materials: Finger Laceration (ED) Referrals: Yaron Latham MD [Primary Care Provider] - Ginger Aleman MD [Medical Doctor] - Additional Instructions: FOLLOW UP WITH THE ORTHOPEDICS HAND SPECIALIST. You have possible tendon involvement in a laceration of the right thumb therefore you need to follow-up with the orthopedic hand specialist for further evaluation to determine this any more treatment needed. GET RECHECKED SOONER IF YOUR CONDITION WORSENS OR ANY QUESTIONS OR CONCERNS. - Billing Disposition and Condition Condition: STABLE Disposition: Home
== END 2019-01-30 14:02 | disposition home or self-care (01) ==
LOC: UCEAST 12:13
DX: S61.011A Laceration without foreign body of right thumb without damage to nail, initial encounter (principal); Z87.891 Personal history of nicotine dependence; Z23 Encounter for immunization; W26.8XXA Contact with other sharp object(s), not elsewhere classified, initial encounter; Y93.G1 Activity, food preparation and clean up; Y92.009 Unspecified place in unspecified non-institutional (private) residence as the place of occurrence of the external cause
CPT/HCPCS: 12001; 90715; 99212; G0463

== ENCOUNTER 2019-04-07 20:03 | Emergency (ER) | payer MEDICARE, MEDICAID ==
--- NOTE | 2019-04-07 20:11 | UC ---
Elbow Pain - HPI Summary HPI Summary: 48 yo male presents with LEFT elbow injury. 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 Since that time has had swelling and pain. He has FROM. Denies numbness or tingling. He is right handed. - History of Current Complaint Stated Complaint: LEFT ELBOW PAIN Time Seen by Provider: 04/07/19 20:11 Hx Obtained From: Patient Onset/Duration: Minutes Severity Initially: Severe Severity Currently: Severe Pain Intensity: 10 Pain Scale Used: 0-10 Numeric - Allergies/Home Medications Allergies/Adverse Reactions: Allergies Allergy/AdvReac Type Severity Reaction Status Date / Time No Known Allergies Allergy Verified 04/07/19 20:14 Home Medications: Home Medications Icosapent Ethyl [Vascepa] 500 mg PO DAILY 04/07/19 [History Confirmed 04/07/19] PMH/Surg Hx/FS Hx/Imm Hx Neurological History: Seizures - Surgical History Surgical History: Yes Surgery Procedure, Year, and Place: 1977 bilat eye surgery. hernia repair - Family History Known Family History: Positive: Hypertension, Seizure Disorder, Non-Contributory - Social History Lives: With Family Alcohol Use: Occasionally Alcohol Amount: 1-2 beers Substance Use Type: None Smoking Status (MU): Former Smoker Length of Time of Smoking/Using Tobacco: 3-4 years Have You Smoked in the Last Year: No When Did the Patient Quit Smoking/Using Tobacco: 1996 - Immunization History Most Recent Influenza Vaccination: none this season Most Recent Tetanus Shot: over 10 years Most Recent Pneumonia Vaccination: none Review of Systems All Other Systems Reviewed And Are Negative: No Constitutional: Positive: Negative Skin: Positive: Negative Respiratory: Positive: Negative Cardiovascular: Positive: Negative Neurovascular: Positive: Negative Musculoskeletal: Positive: Other: - Left elbow pain Neurological: Positive: Negative Psychological: Positive: Negative Physical Exam - Summary Physical Exam Summary: GENERAL: NAD. WDWN. No pain distress. SKIN: No rashes, sores, lesions, or open wounds. CHEST: No accessory muscle use. Breathing comfortably and in no distress. CV: Pulses intact radial and ulnar. Cap refill <2seconds MSK: LEFT ELBOW: Moderate edema and ttp about olecranon. FROM. Strength 5/5 including mold laminator strength. NEURO: Alert. Sensations intact hand and all fingers. PSYCH: Age appropriate behavior. Triage Information Reviewed: Yes Vital Signs: Vital Signs: Temp Pulse Resp BP Pulse Ox 97.9 F 78 16 131/85 99 04/07/19 20:10 04/07/19 20:10 04/07/19 20:10 04/07/19 20:10 04/07/19 20:10 Vital Signs Reviewed: Yes Diagnostics - Radiology Left elbow Radiology Interpretation Completed By: ED Physician Summary of Radiographic Findings: Fx of bone spur (compared to 2014) Elbow Pain Course/Dx - Course Course Of Treatment: XR wet read with fracture of previously known olecranon bone spur. Pt was given ibuprofen in the clinic for his discomfort. Provided with a sling and advised to RICE and f/u with Orthopedics next week for a recheck istop Reference #: [id number] - Differential Dx/Diagnosis Provider Diagnosis: Closed olecranon fracture Discharge ED - Sign-Out/Discharge Documenting (check all that apply): Patient Departure All imaging exams completed and their final reports reviewed: No - Discharge Plan Condition: Stable Disposition: HOME Prescriptions: traMADol TAB* [Ultram*] 50 mg PO Q12H PRN #8 tab MDD 2 PRN Reason: Pain - Severe Patient Education Materials: Elbow Fracture (ED) Referrals: Yaron Latham MD [Primary Care Provider] - Additional Instructions: If you develop a fever, shortness of breath, chest pain, new or worsening symptoms - please call your PCP or go to the ED immediately. 1) Rest, Ice, and elevate your elbow to decrease pain and swelling 2) Use the sling as much as possible 3) Please call Orthopedics at the number below to schedule an appointment for early next week for a recheck - Billing Disposition and Condition Condition: STABLE Disposition: Home
[2019-04-07 20:14] VITALS: BP 131/85
[2019-04-07] MEDS ORDERED: Ibuprofen TAB* 400 MG PO ONE (20:18)
[2019-04-07] MEDS ORDERED: traMADol TAB* 50 MG PO ONE (20:32)
--- NOTE | 2019-04-08 09:40 | UC ---
- Progress Note Progress Note: Patient Name: RYAN REYNOLDS Medical Record#: [id number] Ordering Physician: Campbell QUEEN Acct.#: [id number] : 1970 Age: 48 Sex: M Location: [facility] Exam Date: 04/07/192014 ADM Status: DEP ER Order Information: ELBOW LEFT 3+VWS Accession Number: [id number] CPT: 93714 Indication: Left elbow injury. 4 views of left elbow demonstrates osteophyte formation at the olecranon process. There is suggestion of a fracture at the base of the osteophyte. This was not present on prior exam. Soft tissue swelling superficial to the osteophyte is noted. No joint effusion is noted. IMPRESSION: Fracture of the osteophyte along the triceps tendon insertion at the olecranon. Preliminary Imaging Read R0 <Electronically signed by Adriana Mcghee MD in [place]> 04/08/19915 Dictated By: Adriana Mcghee MD Dictated Date/Time: 04/08/19912 Transcribed Date/Time: 04/08/19912 Copy to: CC:Mary Bruner MD; Yaron Latham MD; Campbell QUEEN Imaging - [facility] - [facility] [address] [place] [address] ph ([phone]) ph ([phone]) ph ([phone]) This report is only to be considered final once signed by the Provider(s) as displayed in the "<Electronically Signed by >" field (s). Absence of a signature indicates the report is in a draft status and still needs to be finalized. In the event this document was created by someone other than the signing Provider, the individual initiating the document will be listed in the "Entered by:" or "Dictated by:" sanchez. 1 of 1 Course/Dx - Diagnoses Provider Diagnoses: Closed olecranon fracture Discharge ED - Sign-Out/Discharge Documenting (check all that apply): Post-Discharge Follow Up All imaging exams completed and their final reports reviewed: Yes - Discharge Plan Condition: Stable Disposition: HOME Prescriptions: traMADol TAB* [Ultram*] 50 mg PO Q12H PRN #8 tab MDD 2 PRN Reason: Pain - Severe Patient Education Materials: Elbow Fracture (ED) Referrals: Pk Burgos MD [Medical Doctor] - As Soon As Possible Yaron Latham MD [Primary Care Provider] - Additional Instructions: If you develop a fever, shortness of breath, chest pain, new or worsening symptoms - please call your PCP or go to the ED immediately. 1) Rest, Ice, and elevate your elbow to decrease pain and swelling 2) Use the sling as much as possible 3) Please call Orthopedics at the number below to schedule an appointment for early next week for a recheck - Billing Disposition and Condition Condition: STABLE Disposition: Home
== END 2019-04-07 20:44 | disposition home or self-care (01) ==
LOC: UCEAST 20:03
DX: S52.022A Displaced fracture of olecranon process without intraarticular extension of left ulna, initial encounter for closed fracture (principal); Z87.891 Personal history of nicotine dependence; W01.198A Fall on same level from slipping, tripping and stumbling with subsequent striking against other object, initial encounter; Y93.K1 Activity, walking an animal; Y92.9 Unspecified place or not applicable
CPT/HCPCS: 99213; A9270-GY; G0463

== ENCOUNTER 2019-05-16 15:06 | Emergency (ER) | payer MEDICARE, MEDICAID ==
[2019-05-16 16:14] LABS: ABS Eosinophils 0.1 10^3/ul (0-0.6); ABS Monocytes 0.3 10^3/ul (0-0.8); ABS Neutrophils 4.7 10^3/ul (1.5-7.7); Eosinophil % 1.8 %; Hematocrit 44 % (42-52); Hemoglobin 15.7 g/dL (14.0-18.0); Mean Corpuscular HGB Conc 35 g/dL (31-36); Mean Corpuscular Hemoglobin 31 pg (27-31); Mean Corpuscular Volume 87 fL (80-94); Mean Platelet Volume 9.1 fL (7.4-10.4); Nucleated Red Blood Cells % 0.1; Platelet Count 124 10^3/uL (150-450); Red Blood Count 5.11 10^6 /uL (4.18-5.48); Red Cell Distribution Width 13 % (10-15); White Blood Count 7.3 10^3/uL (3.5-10.8)
[2019-05-16 16:31] LABS: Albumin 4.8 g/dL (3.2-5.2); Albumin/Globulin Ratio 1.9 (1-3); BUN/Creatinine Ratio 22.4 (8-20); Calcium 9.8 mg/dL (8.6-10.3); EGFR African American 88.9 (>60); EGFR Non-African American 73.5 (>60); Globulin 2.5 g/dL (2-4); Potassium 4.6 mmol/L (3.5-5.0); Total Bilirubin 0.5 mg/dL (0.2-1.0); Total Protein 7.3 g/dL (6.4-8.9)
--- NOTE | 2019-05-16 17:16 | ED ---
Head Injury - HPI Summary HPI Summary: Patient is a 48 y/o M presenting to the ED for a chief complaint of head injury that occurred around 07:00 on 05/16/19. Patient states that he went to get a cup of coffee, lost his balance, and hit his head on a radiator. He reports a headache around 13:00 after the fall, and later notes having nausea and vomiting. Currently, patient complains of fatigue and bilateral knee pain. For the last 3-4 days, patient has had intermittent headaches and dizziness. He describes one episode of dizziness he had as lightning bugs in his vision. Patient denies loss of consciousness, blurred vision, numbness, paresthesia, or weakness. PMHx is significant for seizure disorder, anxiety, and depression. He denies tobacco, alcohol, or drug use. Medications reviewed. Allergies noted. - History Of Current Complaint Chief Complaint: EDHeadInjury Stated Complaint: HEADACHE,DIZZY,FELL THIS MORNING PER PT Time Seen by Provider: 05/16/19 17:07 Hx Obtained From: Patient Mechanism Of Injury: Fall From A Standing Position Onset/Duration: Traumatic - Fall, Still Present Onset of Pain: Prior to Arrival Severity Currently: Moderate Severity Initially: Moderate Pain Intensity: 5 Pain Scale Used: 0-10 Numeric Location of Head Injury: Diffuse Associated Signs And Symptoms: Nausea, Vomiting, Headache - Allergies/Home Medications Allergies/Adverse Reactions: Allergies Allergy/AdvReac Type Severity Reaction Status Date / Time No Known Allergies Allergy Verified 04/07/19 20:14 Home Medications: Home Medications Icosapent Ethyl [Vascepa] 1 gm PO BID WITH MEALS 05/16/19 [History Confirmed 02/22] traMADol TAB* [Ultram*] 50 mg PO Q4HR PRN MDD 300mg 05/16/19 [History Confirmed 05/16/19] PMH/Surg Hx/FS Hx/Imm Hx Previously Healthy: Yes Endocrine/Hematology History: Denies: Hx Diabetes, Hx Thyroid Disease Cardiovascular History: Reports: Hx Hypercholesterolemia Denies: Hx Hypertension, Hx Pacemaker/ICD Respiratory History: Reports: Hx Sleep Apnea - self-diagnosed Denies: Hx Asthma, Hx Chronic Obstructive Pulmonary Disease (COPD) GI History: Reports: Other GI Disorders - umbilical hernia Denies: Hx Ulcer History: Reports: Hx Kidney Infection - none recently Denies: Hx Renal Disease Musculoskeletal History: Reports: Hx Back Problems - chronic lower back pain starting in 2002 Sensory History: Reports: Hx Contacts or Glasses - glasses Denies: Hx Cataracts, Hx Eye Injury, Hx Eye Prosthesis, Hx Glaucoma, Hx Legally Blind, Hx Macular Degeneration, Hx Vision Problem, Hx Deafness, Hx Hearing Aid, Hx Hearing Problem Opthamlomology History: Reports: Hx Contacts or Glasses - glasses Denies: Hx Cataracts, Hx Eye Injury, Hx Eye Prosthesis, Hx Glaucoma, Hx Legally Blind, Hx Macular Degeneration, Hx Vision Problem EENT History: Denies: Hx Deafness Neurological History: Reports: Hx Headaches - sinus, Hx Seizures - hopsitalized recently 05/15-05/22/16 Denies: Hx Dementia, Hx Developmental Delay, Hx Migraine, Hx Nerve Disease, Hx Spinal Cord Injury, Hx Transient Ischemic Attacks (TIA), Other Neuro Impairments/Disorders Psychiatric History: Reports: Hx Anxiety, Hx Depression Denies: Hx Panic Disorder, Hx Substance Abuse - Surgical History Surgical History: Yes Surgery Procedure, Year, and Place: 1977 bilat eye surgery. hernia repair Hx Anesthesia Reactions: No - Immunization History Immunizations Up to Date: Yes Infectious Disease History: No Infectious Disease History: Denies: Hx Clostridium Difficile, Hx Hepatitis, Hx Human Immunodeficiency Virus (HIV), Hx of Known/Suspected MRSA, Hx Shingles, Hx Tuberculosis, Hx Known/ Suspected VRE, Hx Known/Suspected VRSA, History Other Infectious Disease, Traveled Outside the [place] in Last 30 Days - Family History Known Family History: Positive: Hypertension, Seizure Disorder - Social History Occupation: Unemployed Lives: With Family Alcohol Use: Occasionally Alcohol Amount: 1-2 beers Hx Substance Use: No Substance Use Type: Reports: None Hx Tobacco Use: Yes Smoking Status (MU): Former Smoker Length of Time of Smoking/Using Tobacco: 3-4 years Have You Smoked in the Last Year: No Review of Systems Positive: Fatigue Negative: Blurred Vision Positive: Arthralgia - Bilateral knee Neurological/Mental Status: Other - Positive dizziness Positive: Headache. Negative: Weakness, Paresthesia, Numbness, Syncope - LOC All Other Systems Reviewed And Are Negative: Yes Physical Exam - Summary Physical Exam Summary: Constitutional: Well-developed, Well-nourished, Alert. (-) Distressed Skin: Warm, Dry HENT: Normocephalic; Atraumatic. Eyes: Conjunctiva normal Neck: Musculoskeletal ROM normal neck. (-) JVD, (-) Stridor, (-) Tracheal deviation Cardio: Rhythm regular, rate normal, Heart sounds normal; Intact distal pulses; Radial pulses are 2+ and symmetric. (-) Murmur Pulmonary/Chest wall: Effort normal. (-) Respiratory distress, (-) Wheezes, (-) Rales Abd: Soft, (-) tenderness, (-) Distension, (-) Guarding, (-) Rebound Musculoskeletal: (-) Edema. No signs of trauma. Lymph: (-) Cervical adenopathy Neuro: Alert, Oriented x3. NIH Stroke Scale: 0. Psych: Mood and affect Normal Triage Information Reviewed: Yes Vital Signs On Initial Exam: Initial Vitals Temp Pulse Resp BP Pulse Ox 96.9 F 78 18 151/79 97 05/16/19 15:12 05/16/19 15:12 05/16/19 15:12 05/16/19 15:12 05/16/19 15:12 Vital Signs Reviewed: Yes Procedures - Sedation Patient Received Moderate/Deep Sedation with Procedure: No Diagnostics - Vital Signs Vital Signs Temp Pulse Resp BP Pulse Ox 05/16/19 15:12 96.9 F 78 18 151/79 97 - Laboratory Lab Results: Lab Results 05/16/19 05/16/19 05/16/19 Range/Units 16:02 16:03 16:03 WBC 7.3 (3.5-10.8) 10^3/uL RBC 5.11 (4.18-5.48) 10^6 /uL Hgb 15.7 (14.0-18.0) g/dL Hct 44 (42-52) % MCV 87 (80-94) fL MCH 31 (27-31) pg MCHC 35 (31-36) g/dL RDW 13 (10-15) % Plt Count 124 L (150-450) 10^3/uL MPV 9.1 (7.4-10.4) fL Neut % (Auto) 65.1 % Lymph % (Auto) 28.0 % [place] % (Auto) 4.7 % Eos % (Auto) 1.8 % Baso % (Auto) 0.4 % Absolute Neuts (auto) 4.7 (1.5-7.7) 10^3/ul Absolute Lymphs (auto) 2.0 (1.0-4.8) 10^3/ul Absolute Monos (auto) 0.3 (0-0.8) 10^3/ul Absolute Eos (auto) 0.1 (0-0.6) 10^3/ul Absolute Basos (auto) 0.0 (0-0.2) 10^3/ul Absolute Nucleated RBC 0.0 10^3/ul Nucleated RBC % 0.1 Carbon Monoxide Screen (<4.0) % Sodium 138 (135-145) mmol/L Potassium 4.6 (3.5-5.0) mmol/L Chloride 105 (101-111) mmol/L Carbon Dioxide 29 (22-32) mmol/L Anion Gap 4 (2-11) mmol/L BUN 24 (6-24) mg/dL Creatinine 1.07 (0.67-1.17) mg/dL Est GFR ( Amer) 88.9 (>60) Est GFR (Non-Af Amer) 73.5 (>60) BUN/Creatinine Ratio 22.4 H (8-20) Glucose 97 (70-100) mg/dL Lactic Acid 1.0 (0.5-2.0) mmol/L Calcium 9.8 (8.6-10.3) mg/dL Total Bilirubin 0.50 (0.2-1.0) mg/dL AST 19 (13-39) U/L ALT 35 (7-52) U/L Alkaline Phosphatase 47 (34-104) U/L Total Protein 7.3 (6.4-8.9) g/dL Albumin 4.8 (3.2-5.2) g/dL Globulin 2.5 (2-4) g/dL Albumin/Globulin Ratio 1.9 (1-3) 05/16/19 Range/Units 16:03 WBC (3.5-10.8) 10^3/uL RBC (4.18-5.48) 10^6 /uL Hgb (14.0-18.0) g/dL Hct (42-52) % MCV (80-94) fL MCH (27-31) pg MCHC (31-36) g/dL RDW (10-15) % Plt Count (150-450) 10^3/uL MPV (7.4-10.4) fL Neut % (Auto) % Lymph % (Auto) % [place] % (Auto) % Eos % (Auto) % Baso % (Auto) % Absolute Neuts (auto) (1.5-7.7) 10^3/ul Absolute Lymphs (auto) (1.0-4.8) 10^3/ul Absolute Monos (auto) (0-0.8) 10^3/ul Absolute Eos (auto) (0-0.6) 10^3/ul Absolute Basos (auto) (0-0.2) 10^3/ul Absolute Nucleated RBC 10^3/ul Nucleated RBC % Carbon Monoxide Screen <4.0 (<4.0) % Sodium (135-145) mmol/L Potassium (3.5-5.0) mmol/L Chloride (101-111) mmol/L Carbon Dioxide (22-32) mmol/L Anion Gap (2-11) mmol/L BUN (6-24) mg/dL Creatinine (0.67-1.17) mg/dL Est GFR ( Amer) (>60) Est GFR (Non-Af Amer) (>60) BUN/Creatinine Ratio (8-20) Glucose (70-100) mg/dL Lactic Acid (0.5-2.0) mmol/L Calcium (8.6-10.3) mg/dL Total Bilirubin (0.2-1.0) mg/dL AST (13-39) U/L ALT (7-52) U/L Alkaline Phosphatase (34-104) U/L Total Protein (6.4-8.9) g/dL Albumin (3.2-5.2) g/dL Globulin (2-4) g/dL Albumin/Globulin Ratio (1-3) Result Diagrams: 05/16/19 16:03 05/16/19 16:02 Lab Statement: Any lab studies that have been ordered have been reviewed, and results considered in the medical decision making process. - EKG 17:32 Cardiac Rate: NL - 65 BPM EKG Rhythm: Sinus Rhythm ST Segment: Normal Ectopy: None Summary of EKG Findings: EKG at 17:32 shows normal sinus rhythm with 65 BPM, no STEMI. Reviewed and interpreted by Dr. Valentin. Head Injury Course/Dx Course Of Treatment: Patient is here after losing balance and hitting his head on the radiator. Incident occurred at 7 AM this morning. Patient has no evidence of intercranial hemorrhage on exam or history as as been 10 hours since the incident and he is well-appearing. Patient has had some dizziness and presyncopal type symptoms over the past couple of days. Patient had blood or performed which showed no evidence of anemia, electrolyte abnormality. Patient's EKG shows no evidence of ischemia or arrhythmia. Patient is discharged with PCP follow-up - Diagnoses Provider Diagnoses: Concussion Discharge ED - Sign-Out/Discharge Documenting (check all that apply): Patient Departure - Discharge - Discharge Plan Condition: Stable Disposition: HOME Patient Education Materials: Concussion (ED) Referrals: Yaron Latham MD [Primary Care Provider] - Additional Instructions: PLEASE RETURN TO EMERGENCY DEPARTMENT FOR SLURRED SPEECH, ONE-SIDED WEAKNESS, ONE-SIDED NUMBNESS, CHEST PAIN, YOU ARE NOT BEHAVING NORMALLY, OR ANY NEW OR WORSENING SYMPTOMS. Please follow up with your primary care physician within one week for further evaluation. You likely have a concussion. Avoid screens, reading, etc. for the next 2 days as we discussed. - Billing Disposition and Condition Condition: STABLE Disposition: Home - Attestation Statements Document Initiated by Scribe: Yes Documenting Scribe: Heike Roach Provider For Whom Alieibe is Documenting (Include Credential): Caden Valentin MD Scribe Attestation: Heike Guan, primoed for Caden Valentin MD on 05/16/19 at 1809. Scribe Documentation Reviewed: Yes Provider Attestation: The documentation as recorded by the Heike bearden accurately reflects the service I personally performed and the decisions made by me, Caden Valentin MD Status of Scribe Document: Viewed NIH Scale - NIH Scale Level of Consciousness: Alert/Keenly Responsive Ask Patient the Month and His/Her Age: Both Correct Ask Pt to Open/Close Eyes and Woods Warden/Release Non-Paretic Hand: Both Correctly Best Gaze (Only Horizontal Eye Movement): Normal Visual Field Testing: No Visual Loss Facial Paresis-Pt to Smile & Close Eyes or Grimace Symmetry: Normal/Symmetrical Motor Function - Right Arm: No Drift-Holds 10 Seconds Motor Function - Left Arm: No Drift-Holds 10 Seconds Motor Function - Right Leg: No Drift-Holds 10 Seconds Motor Function - Left Leg: No Drift-Holds 10 Seconds Limb Ataxia-Must be out of Proportion to Weakness Present: Absent Sensory (Use Pinprick to Test Arms/Legs/Trunk/Face): Normal Best Language (Describe Picture, Name Items): No Aphasia Dysarthria (Read Several Words): Normal Extinction and Inattention: No Abnormality Total Score: 0
[2019-05-16 17:48] VITALS: BP 137/77
== END 2019-05-16 17:47 | disposition home or self-care (01) ==
LOC: ED 15:06
DX: S06.0X9A Concussion with loss of consciousness of unspecified duration, initial encounter (principal); W18.39XA Other fall on same level, initial encounter; Y92.009 Unspecified place in unspecified non-institutional (private) residence as the place of occurrence of the external cause; E78.00 Pure hypercholesterolemia, unspecified; F41.9 Anxiety disorder, unspecified; F32.9 Major depressive disorder, single episode, unspecified; Z87.891 Personal history of nicotine dependence
CPT/HCPCS: 36415; 80053; 82375; 83605; 85025; 93005; 99282